=== PATIENT | male | born 1990 | race Caucasian/White ===

== ENCOUNTER 2024-03-01 04:07 | Inpatient (IN) | payer OTHER, SELFPAY ==
[2024-03-01 04:25] VITALS: BP 121/81; PULSE 77; RESP 16; TEMP 36.3; O2SAT 96
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
[2024-03-01 07:19] VITALS: BMI 29.7
--- NOTE | 2024-03-01 08:33 | HO.PSYADMNOT ---
HPI Date of Service: 03/01/24 Chief Complaint: unspecified bipolar D/o, unspecified opioid abuse Sources of Information: patient interviewed, chart reviewed and crisis/core team assessment reviewed HPI Subjective Notes: Singh Warning and Conditional Voluntary Narrative: Patient is a 33-year-old male with history of depression, cocaine/fentanyl use disorder, who presents for worsening depression SI with plan to walk in traffic, in the face of homelessness and chronic substance abuse. Patient reports that he was in a psychiatric hospital about a month ago where his mood significantly improved. After discharge, he remained sober for few days but soon relapsed. He has been homeless, sleeping on the street, and boiled in cocaine and fentanyl abuse. Patient reports that this cycle just made his depression worse to the point where he felt hopeless, alone and started having suicidal thoughts to walk out into traffic. These thoughts were fleeting and instead he presented to the ED for help. Denies manic episodes (with some hesitancy); denies AVH/delusional thinking; denies HI toward anyone including step father (angry towards but no thoughts of harm) Nursing staff,, Gila Newberry informed publications writer that patient was last dosed on methadone 185mg on 02/[address] [facility] Past Psychiatric History: Past psychiatric hospitalizations Most recent hospitalization, [facility] 01/2024 Medical Evaluation Reviewed: Hospitalist Sabina Pending [facility] Medical History MDD (major depressive disorder), recurrent severe, without psychosis Opioid use disorder Cocaine use disorder Homeless Family History: maternal side bipolar disorder, depression mother: addiction Social History: raised by his Paternal grandparents; siblings raised by maternal grandparents HS to 10th grade, no GED Mother currently homeless Uncle Larry is supportive Substance History: long hx of cocaine/opioid abuse Trauma History: denies Diagnostics Vital Signs (24Hr): Vital Signs - 24 hr 03/01/24 04:25 Temperature 97.3 F Pulse Rate 77 Respiratory Rate 16 Blood Pressure 121/81 Pulse Oximetry 96 Oxygen Delivery Method Room Air BMI result Body Mass Index 29.7 Labs 03/01/24 08:15 Meds/Allergies Meds Home Medications ?Medication ?Instructions ?Recorded ?Confirmed ?Type aripiprazole 10 mg PO DAILY 03/01/24 03/01/24 History bupropion HCl 100 mg PO BID 03/01/24 03/01/24 History clonidine 0.2 mg PO BID PRN Anxiety 03/01/24 03/01/24 History methadone 10 mg/mL oral 185 mg PO DAILY 03/01/24 03/01/24 History concentrate (Methadone Intensol) Allergies Allergies Allergy/AdvReac Type Severity Reaction Status Date / Time Unable to Assess Allergy Verified 03/01/24 06:40 Mental Status Exam Mental Status Exam Narrative: Pt is alert and oriented; behavior is cooperative, friendly and calm; patient is not in distress; dressed in hospital attire, disheveled; mood is described as depressed and affect congruent, downcast; eye contact a little avoidant; Speech is mildly latent, slowed; normal volume and prosody and not pressured; psychomotor retardation present; thought process is organized and goal directed; Thought content is on psychosocial stressors, tx; otherwise pertinent to relevant topics and without any delusional content, paranoid ideations or grandiosity; denies any SI/HI including toward step father. Denies AVH. There is no evidence of perceptual disturbance. Patients insight and judgment impaired. Assessment & Plan Assessment & Plan (1) MDD (major depressive disorder), recurrent severe, without psychosis: Status: Acute Code(s): F33.2 - Major depressive disorder, recurrent severe without psychotic features (2) Cocaine use disorder: Status: Acute Code(s): F14.10 - Cocaine abuse, uncomplicated (3) Opioid use disorder: Status: Acute Code(s): F11.90 - Opioid use, unspecified, uncomplicated (4) Homeless: Status: Acute Code(s): Z59.00 - Homelessness unspecified Plan Patient is a 33-year-old male with history of depression, cocaine/fentanyl use disorder, who presents for worsening depression SI with plan to walk in traffic, in the face of homelessness and chronic substance abuse. Patient reports that he was in a psychiatric hospital about a month ago where his mood significantly improved. After discharge, he remained sober for few days but soon relapsed. He has been homeless, sleeping on the street, and boiled in cocaine and fentanyl abuse. Patient reports that this cycle just made his depression worse to the point where he felt hopeless, alone and started having suicidal thoughts to walk out into traffic. These thoughts were fleeting and instead he presented to the ED for help. formulation/clincal reasoning: hx of depression well treated with Bupropion XL 450mg; depression mostly worsens when in active substance abuse. Denies hx of manic type symptoms (with some hesitancy). Will continue on Bupropion, clonidine, melatonin which he takes regularly. Pt asking for program. Patient educated on: diagnosis, medication risk/benefits, substance abuse and therapeutic strategies Informed Consent: understands Reason for continued inpatient stay Substantial Risk for: rapid decompensation Statement Statement: I have reviewed the history and physical and performed a pertinent examination on my patient. No changes have occurred unless specified. If the History and Physical was not performed prior to admission, the Hospitalist's service will be consulted for completing the admission physical. Time Spent With Patient Time: Total time managing care of this patient today ____ minutes.
--- NOTE | 2024-03-01 08:54 | HE.PHANOTE ---
Re MEthadone Received confirmation from RN that patient received 185mg from [facility], last given on 02/24/24. However, patient was at [facility]'s ER yesterday 02/29/24 where he received a 185mg dose.
[2024-03-01 09:20] LABS: Alanine Aminotransferase 33 U/L (0-40); Albumin Level 4.1 g/dL (3.5-5.0); Alkaline Phosphatase 62 U/L (39-117); Anion Gap 11 (12-20); Aspartate Amino Transferase 30 U/L (5-37); Bilirubin Total 0.2 mg/dL (0.0-1.0); Blood Urea Nitrogen 13 mg/dL (9-16); Calcium 10.2 mg/dL (8.4-10.2); Carbon Dioxide 34 mmol/L (22-29); Chloride 102 mmol/L (96-108); Creatinine Clr Calc Pharmacy 133.8; Estimated Glomerular Filt Rate > 60; Glucose Random 94 mg/dL (60-115); Potassium 4.7 mmol/L (3.3-5.1); Sodium 142 mmol/L (135-145); Total Protein 7.5 g/dL (6.5-8.0)
[2024-03-01 10:23] VITALS: BP 113/66; PULSE 62; TEMP 36.4; O2SAT 96
[2024-03-01] MEDS: methADONE HCl 20 MG/2 ML ORAL.CONC 185 MG PO (10:59)
[2024-03-01] MEDS: Nicotine Polacrilex 2 MG GUM 4 MG BUCCAL ×3 (11:02→19:45)
[2024-03-01] MEDS: buPROPion HCl XL 300 MG TAB.ER.24H PO (14:27)
[2024-03-01 15:25] VITALS: BP 121/80
[2024-03-01] MEDS: cloNIDine HCL 0.2 MG TABLET PO ×2 (15:25→19:45)
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
[2024-03-01] MEDS: Melatonin 3 MG TABLET 9 MG PO (19:44)
[2024-03-01 20:00] VITALS: BP 109/55; PULSE 60; RESP 16; TEMP 36.2; O2SAT 94
[2024-03-02] MEDS: methADONE HCl 20 MG/2 ML ORAL.CONC 185 MG PO (07:49)
[2024-03-02 08:31] LABS: MANUAL DIFF FLAG NO
[2024-03-02 08:36] LABS: Basophils Percent Auto 0.6 % (0-2); Eosinophils Absolute Auto 0.2 X10*3/uL (0.0-0.4); Eosinophils Percent Auto 2.8 % (0-4); Hematocrit 40.1 % (42.0-52.0); Hemoglobin 13.7 g/dl (14.0-18.0); Imm Gran Abs Auto 0.02 X10*3/uL (0.00-0.03); Imm Gran Pct Auto 0.4 % (0.0-0.4); Lymphocytes Absolute Auto 2.2 X10*3/uL (1.2-4.9); Lymphocytes Percent Auto 39.5 % (20-40); Mean Corpuscular HGB Conc 34.2 g/dl (31.0-36.0); Mean Corpuscular Volume 87.7 fL (80.0-98.0); Mean Platelet Volume 12.1 fL (9.4-12.4); Monocytes Absolute Auto 0.4 X10*3/uL (0.1-1.2); Neutrophils Absolute Auto 2.7 x10*3/uL (2.0-8.3); Neutrophils Percent Auto 49.7 % (45-73); Platelet Count 190 X10*3/uL (160-400); Red Blood Count 4.57 X10*6/uL (4.60-5.80); Red Cell Distribution Width 13.4 % (11.0-16.0); White Blood Count 5.4 X10*3/uL (4.8-10.8)
[2024-03-02] MEDS: buPROPion HCl XL 300 MG TAB.ER.24H PO (08:40)
[2024-03-02 08:45] LABS: Estimated Average Glucose 108 mg/dL; Hemoglobin A1C 122.0366 umol/L; Hemoglobin A1c % 5.4 % (<6.0); Total Hemoglobin (HGBA1C) 3474.2823 umol/L
[2024-03-02] MEDS: Nicotine Polacrilex 2 MG GUM 4 MG BUCCAL ×3 (08:45→20:04)
[2024-03-02 08:58] LABS: Cholesterol 161 mg/dL (<200); HDL Cholesterol 47 mg/dL (>40); LDL Cholesterol Calculated 101 mg/dL (<100); Triglycerides 68 mg/dL (<150)
[2024-03-02 09:27] LABS: Folate 11.8 ng/mL (> or = 4.0); Vitamin B12 387 pg/mL (200-900)
[2024-03-02 09:42] VITALS: BP 128/82; PULSE 78; RESP 18; TEMP 36.6; O2SAT 98
[2024-03-02 09:42] LABS: Free T4 (Free Thyroxine) 1.14 ng/dL (0.71-1.85); Thyroid Stimulating Hormone 1.34 uIU/mL (0.32-4.0)
[2024-03-02] MEDS: cloNIDine HCL 0.2 MG TABLET PO ×3 (09:42→20:04)
[2024-03-02] MEDS: buPROPion HCl XL 150 MG TAB.ER.24H PO (12:50)
[2024-03-02 16:25] VITALS: BP 114/70
[2024-03-02 16:42] VITALS: BMI 26.6
[2024-03-02] MEDS: Melatonin 3 MG TABLET 9 MG PO (19:58)
[2024-03-02 20:00] VITALS: BP 113/53; PULSE 101; RESP 14; TEMP 37.2; O2SAT 96
--- NOTE | 2024-03-02 23:04 | P.PNPSI_ITS ---
Subjective Subjective Date of Service: 03/02/24 Reason For Visit: unspecified bipolar D/o, unspecified opioid abuse Interim History: met with pt; discussed with team pt reports that he was never really suicidal and never had any intention or plans for self harm. He slept well and reports he feeling better; says depression is still there a little bit... but increases when he thinks about homelessness which triggers a strong reaction. Discussed aftercare and patients says he's not ready yet, that his mind still needs to heal, but he very much wants to attend a CSS/substance abuse program. Pt however refuses to go [facility], saying he's been there and left early since it's too stringent and confining. White Sugar Syrup Operator shared that he can pursue other options but if refuses [facility] and other options do not materialize, patient should understand that plan B will be a snf; pt found this idea upsetting but still refused to attend [facility]. Discussed emotional reactivity and whether to add another medication; did not discuss options yet, but patient said he would consider. Mental Status Exam Mental Status Exam Narrative: Pt is alert and oriented; behavior is mostly isolating; cooperative, and calm; patient is not in distress; dressed in hospital attire, disheveled; mood is described as alright...depression still there a little bit and affect congruent, downcast; eye contact still a little avoidant; Speech is normal rate, volume, prosody; still psychomotor retardation present; thought process is organized and goal directed; Thought content is on psychosocial stressors, homelessness, tx; otherwise pertinent to relevant topics and without any delusional content, paranoid ideations or grandiosity; denies any SI/HI including toward step father. Denies AVH. There is no evidence of perceptual disturbance. Patients insight and judgment impaired but improving. Diagnostics Vital Signs (24Hr): Vital Signs - 24 hr 03/02/24 09:42 03/02/24 16:25 03/02/24 20:00 Temperature 97.8 F 98.9 F Pulse Rate 78 101 H Respiratory Rate 18 14 Blood Pressure 128/82 114/70 113/53 L Pulse Oximetry 98 96 Oxygen Delivery Method Room Air Room Air BMI result Body Mass Index 26.6 Labs 03/02/24 08:05 03/01/24 08:15 Labs: Laboratory Results - last 48 hr 03/01/24 03/02/24 08:15 08:05 WBC 5.4 RBC 4.57 L Hgb 13.7 L Hct 40.1 L MCV 87.7 MCH 30.0 MCHC 34.2 RDW 13.4 Plt Count 190 MPV 12.1 Immature Gran % (Auto) 0.4 Neut % (Auto) 49.7 Lymph % (Auto) 39.5 [place] % (Auto) 7.0 Eos % (Auto) 2.8 Baso % (Auto) 0.6 Lymph # (Auto) 2.2 [place] # (Auto) 0.4 Eos # (Auto) 0.2 Baso # (Auto) 0.0 Abs Immat Gran (auto) 0.02 Absolute Neuts (auto) 2.7 Absolute Nucleated RBC 0.000 Nucleated RBC % (auto) 0.0 Sodium 142 Potassium 4.7 Chloride 102 Carbon Dioxide 34 H Anion Gap 11 L BUN 13 Creatinine 0.95 Estim Creat Clear Calc 133.8 Estimated GFR > 60 Random Glucose 94 Estimat Average Glucose 108 Hemoglobin A1c % 5.4 Calcium 10.2 Total Bilirubin 0.2 AST 30 ALT 33 Alkaline Phosphatase 62 Total Protein 7.5 Albumin 4.1 Triglycerides 68 Cholesterol 161 LDL Cholesterol, Calc 101 H HDL Cholesterol 47 Vitamin B12 387 Folate 11.8 TSH 1.34 Free T4 1.14 Medications Medications Current Medications Acetaminophen (Acetaminophen 325 Mg Tablet) 650 mg PO Q6H PRN PRN Reason: Headache/Pain Mild Scale (1-3) Al Hydroxide/Mg Hydroxide (Magnesium Hydrox/Alum Hydrox 30 Ml Oral.Susp) 30 ml PO Q6H PRN PRN Reason: Heartburn/Nausea Bupropion HCl (Bupropion Hcl Xl 300 Mg Tab.Er.24h) 300 mg PO DAILY [facility] Last Admin: 03/02/24 08:40 Dose: 300 mg Bupropion HCl (Bupropion Hcl Xl 150 Mg Tab.Er.24h) 150 mg PO DAILY@1300 [facility] Last Admin: 03/02/24 12:50 Dose: 150 mg Clonidine HCl (Clonidine Hcl 0.2 Mg Tablet) 0.2 mg PO TID PRN; Protocol PRN Reason: anxiety Last Admin: 03/02/24 20:04 Dose: 0.2 mg Hydroxyzine HCl (Hydroxyzine Hcl 25 Mg Tablet) 25 mg PO Q6H PRN PRN Reason: Anxiety Magnesium Hydroxide (Milk Of Magnesia 30 Ml Oral.Susp) 30 ml PO DAILY PRN PRN Reason: Constipation Melatonin (Melatonin 3 Mg Tablet) 9 mg PO BEDTIME [facility] Last Admin: 03/02/24 19:58 Dose: 9 mg Methadone HCl (Methadone Hcl 20 Mg/2 Ml Oral.Conc) 185 mg PO DAILY@0800 [facility] Last Admin: 03/02/24 07:49 Dose: 185 mg Nicotine Polacrilex (Nicotine Polacrilex 2 Mg Gum) 4 mg BUCCAL Q2H PRN PRN Reason: Nicotine Cravings Last Admin: 03/02/24 20:04 Dose: 4 mg Trazodone HCl (Trazodone Hcl 50 Mg Tablet) 50 mg PO BEDTIME MRX1 PRN PRN Reason: Insomnia Allergies Allergies Allergy/AdvReac Type Severity Reaction Status Date / Time Unable to Assess Allergy Verified 03/01/24 06:40 Assessment & Plan Assessment & Plan (1) MDD (major depressive disorder), recurrent severe, without psychosis: Status: Acute Code(s): F33.2 - Major depressive disorder, recurrent severe without psychotic features (2) Cocaine use disorder: Status: Acute Code(s): F14.10 - Cocaine abuse, uncomplicated (3) Opioid use disorder: Status: Acute Code(s): F11.90 - Opioid use, unspecified, uncomplicated (4) Homeless: Status: Acute Code(s): Z59.00 - Homelessness unspecified Plan Patient is a 33-year-old male with history of depression, cocaine/fentanyl use disorder, who presents for worsening depression SI with plan to walk in traffic, in the face of homelessness and chronic substance abuse. Patient reports that he was in a psychiatric hospital about a month ago where his mood significantly improved. After discharge, he remained sober for few days but soon relapsed. He has been homeless, sleeping on the street, and boiled in cocaine and fentanyl abuse. Patient reports that this cycle just made his depression worse to the point where he felt hopeless, alone and started having suicidal thoughts to walk out into traffic. These thoughts were fleeting and instead he presented to the ED for help. formulation/clincal reasoning: hx of depression well treated with Bupropion XL 450mg; depression mostly worsens when in active substance abuse. Denies hx of manic type symptoms (with some hesitancy). Will continue on Bupropion, clonidine, melatonin which he takes regularly. Pt asking for program. 03/02 pt reports that he was never really suicidal and never had any intention or plans for self harm. He slept well and reports he feeling better; says depression is still there a little bit... but increases when he thinks about homelessness which triggers a strong reaction. Discussed aftercare and patients says he's not ready yet, that his mind still needs to heal, but he very much wants to attend a [facility]/substance abuse program. Pt however refuses to go to [facility], saying he's been there and left early since it's too stringent and confining. White [employer] Sy[employer] Operator shared that he can pursue other options but if refuses [facility] and other options do not materialize, patient should understand that plan B will be a snf; pt found this idea upsetting but still refused to attend [facility]. Discussed emotional reactivity and whether to add another medication; did not discuss options yet, but patient said he would consider. Patient educated on: diagnosis, medication risk/benefits, substance abuse and therapeutic strategies Informed Consent: understands Reason for continued inpatient stay Substantial Risk for: rapid decompensation Time Spent With Patient Time: Total time managing care of this patient today ____ minutes.
[2024-03-03] MEDS: methADONE HCl 20 MG/2 ML ORAL.CONC 185 MG PO (07:46)
[2024-03-03 09:03] VITALS: BP 101/57; PULSE 81; RESP 16; TEMP 36.2; O2SAT 97
[2024-03-03] MEDS: buPROPion HCl XL 300 MG TAB.ER.24H PO (09:10)
[2024-03-03] MEDS: Nicotine Polacrilex 2 MG GUM 4 MG BUCCAL ×3 (09:11→20:10)
[2024-03-03 10:01] VITALS: BP 118/70
[2024-03-03 10:02] VITALS: BP 118/70
[2024-03-03] MEDS: cloNIDine HCL 0.2 MG TABLET PO ×3 (10:02→20:10)
[2024-03-03] MEDS: buPROPion HCl XL 150 MG TAB.ER.24H PO (13:05)
--- NOTE | 2024-03-03 14:36 | P.PNPSI_ITS ---
Subjective Subjective Date of Service: 03/03/24 Reason For Visit: unspecified bipolar D/o, unspecified opioid abuse Subjective Notes: Conditional Voluntary Interim History: Patient reports feeling anxious today; pt stated, I'm waiting to go into a substance abuse program. I'm anxious since I don't know where I'm going. I'll go anywhere that has an open bed ; social work notified. pt denies SI/HI/VH/AH. Medication Compliance: Yes Side effects from medications: No Review of Systems Constitutional: Reports as per HPI Eyes: Reports as per HPI Reports as per HPI Cardiovascular: Reports as per HPI Respiratory: Reports as per HPI Gastrointestinal: Reports as per HPI Genitourinary: Reports as per HPI Musculoskeletal: Reports as per HPI Skin/Breast: Reports as per HPI Reports as per HPI Psychiatric: Reports as per HPI Endocrine: Reports as per HPI Hematologic/Lymphatic: Reports as per HPI Allergic/Immunologic: Reports as per HPI Mental Status Exam Mental Status Exam Narrative: Pt is alert and oriented; behavior is cooperative; dressed in casual attire; mood is described as anxious ; eye contact appropriate; Speech is normal rate, volume and not pressured; thought process is organized and goal directed; Thought content is on tx; denies SI/HI/VH/AH Diagnostics Vital Signs (24Hr): Vital Signs - 24 hr 03/02/24 16:25 03/02/24 20:00 03/03/24 09:03 Temperature 98.9 F 97.2 F Pulse Rate 101 H 81 Respiratory Rate 14 16 Blood Pressure 114/70 113/53 L 101/57 L Pulse Oximetry 96 97 Oxygen Delivery Method Room Air Room Air 03/03/24 10:01 03/03/24 10:02 Temperature Pulse Rate Respiratory Rate Blood Pressure 118/70 118/70 Pulse Oximetry Oxygen Delivery Method BMI result Body Mass Index 26.6 Labs 03/02/24 08:05 03/01/24 08:15 Labs: Laboratory Results - last 48 hr 03/02/24 08:05 WBC 5.4 RBC 4.57 L Hgb 13.7 L Hct 40.1 L MCV 87.7 MCH 30.0 MCHC 34.2 RDW 13.4 Plt Count 190 MPV 12.1 Immature Gran % (Auto) 0.4 Neut % (Auto) 49.7 Lymph % (Auto) 39.5 [place] % (Auto) 7.0 Eos % (Auto) 2.8 Baso % (Auto) 0.6 Lymph # (Auto) 2.2 [place] # (Auto) 0.4 Eos # (Auto) 0.2 Baso # (Auto) 0.0 Abs Immat Gran (auto) 0.02 Absolute Neuts (auto) 2.7 Absolute Nucleated RBC 0.000 Nucleated RBC % (auto) 0.0 Estimat Average Glucose 108 Hemoglobin A1c % 5.4 Triglycerides 68 Cholesterol 161 LDL Cholesterol, Calc 101 H HDL Cholesterol 47 Vitamin B12 387 Folate 11.8 TSH 1.34 Free T4 1.14 Medications Medications Current Medications Acetaminophen (Acetaminophen 325 Mg Tablet) 650 mg PO Q6H PRN PRN Reason: Headache/Pain Mild Scale (1-3) Al Hydroxide/Mg Hydroxide (Magnesium Hydrox/Alum Hydrox 30 Ml Oral.Susp) 30 ml PO Q6H PRN PRN Reason: Heartburn/Nausea Bupropion HCl (Bupropion Hcl Xl 300 Mg Tab.Er.24h) 300 mg PO DAILY [facility] Last Admin: 03/03/24 09:10 Dose: 300 mg Bupropion HCl (Bupropion Hcl Xl 150 Mg Tab.Er.24h) 150 mg PO DAILY@1300 [facility] Last Admin: 03/03/24 13:05 Dose: 150 mg Clonidine HCl (Clonidine Hcl 0.2 Mg Tablet) 0.2 mg PO TID PRN; Protocol PRN Reason: anxiety Last Admin: 03/03/24 10:02 Dose: 0.2 mg Hydroxyzine HCl (Hydroxyzine Hcl 25 Mg Tablet) 25 mg PO Q6H PRN PRN Reason: Anxiety Magnesium Hydroxide (Milk Of Magnesia 30 Ml Oral.Susp) 30 ml PO DAILY PRN PRN Reason: Constipation Melatonin (Melatonin 3 Mg Tablet) 9 mg PO BEDTIME [facility] Last Admin: 03/02/24 19:58 Dose: 9 mg Methadone HCl (Methadone Hcl 20 Mg/2 Ml Oral.Conc) 185 mg PO DAILY@0800 [facility] Last Admin: 03/03/24 07:46 Dose: 185 mg Nicotine Polacrilex (Nicotine Polacrilex 2 Mg Gum) 4 mg BUCCAL Q2H PRN PRN Reason: Nicotine Cravings Last Admin: 03/03/24 13:05 Dose: 4 mg Trazodone HCl (Trazodone Hcl 50 Mg Tablet) 50 mg PO BEDTIME MRX1 PRN PRN Reason: Insomnia Allergies Allergies Allergy/AdvReac Type Severity Reaction Status Date / Time Unable to Assess Allergy Verified 03/01/24 06:40 Assessment & Plan Assessment & Plan (1) MDD (major depressive disorder), recurrent severe, without psychosis: Status: Acute Code(s): F33.2 - Major depressive disorder, recurrent severe without psychotic features (2) Cocaine use disorder: Status: Acute Code(s): F14.10 - Cocaine abuse, uncomplicated (3) Opioid use disorder: Status: Acute Code(s): F11.90 - Opioid use, unspecified, uncomplicated (4) Homeless: Status: Acute Code(s): Z59.00 - Homelessness unspecified Plan Patient is a 33-year-old male with history of depression, cocaine/fentanyl use disorder, who presents for worsening depression SI with plan to walk in traffic, in the face of homelessness and chronic substance abuse. Patient reports that he was in a psychiatric hospital about a month ago where his mood significantly improved. After discharge, he remained sober for few days but soon relapsed. He has been homeless, sleeping on the street, and boiled in cocaine and fentanyl abuse. Patient reports that this cycle just made his depression worse to the point where he felt hopeless, alone and started having suicidal thoughts to walk out into traffic. These thoughts were fleeting and instead he presented to the ED for help. formulation/clincal reasoning: hx of depression well treated with Bupropion XL 450mg; depression mostly worsens when in active substance abuse. Denies hx of manic type symptoms (with some hesitancy). Will continue on Bupropion, clonidine, melatonin which he takes regularly. Pt asking for program. 03/02 pt reports that he was never really suicidal and never had any intention or plans for self harm. He slept well and reports he feeling better; says depression is still there a little bit... but increases when he thinks about homelessness which triggers a strong reaction. Discussed aftercare and patients says he's not ready yet, that his mind still needs to heal, but he very much wants to attend a CSS/substance abuse program. Pt however refuses to go to [facility], saying he's been there and left early since it's too stringent and confining. Freight Handler shared that he can pursue other options but if refuses [facility] and other options do not materialize, patient should understand that plan B will be a nursing home; pt found this idea upsetting but still refused to attend [facility]. Discussed emotional reactivity and whether to add another medication; did not discuss options yet, but patient said he would consider. 03/03: continue current tx plan. Patient educated on: medication risk/benefits Reason for continued inpatient stay Substantial Risk for: med/psych decompensation Time Spent With Patient Time: Total time managing care of this patient today _20___ minutes.
[2024-03-03 16:37] VITALS: BP 111/69
[2024-03-03 20:00] VITALS: BP 104/61; PULSE 87; RESP 16; TEMP 36.9; O2SAT 97
[2024-03-03] MEDS: Melatonin 3 MG TABLET 9 MG PO (20:10)
[2024-03-04] MEDS: methADONE HCl 20 MG/2 ML ORAL.CONC 185 MG PO (07:26)
--- NOTE | 2024-03-04 08:13 | HO.PSYCHPN ---
Subjective Subjective Date of Service: 03/04/24 Reason For Visit: unspecified bipolar D/o, unspecified opioid abuse Subjective Notes: Conditional Voluntary Interim History: The nursing staff reported the patient had been compliant with treatment, he asked for p.r.n. medications. He took his methadone and he denies new symptoms. On interview the patient reported that he is feeling okay disengaged during the interview. No new symptoms Mental Status Exam Mental Status Exam Patient Appearance: Appropriate Patient Orientation: Person and Situation Level of Consciousness: Awake and Appropriate Patient Behavior: Guarded and Passive Mood Description: Withdrawn Affect Description: Constricted Patient Cognition Impaired: No Ability to Follow Directions: Good Speech Pattern: Clear Hallucinations: None Delusions: Ideas of Reference Thought Process: Distracted and Slowed Thinking Thought Content: positive for [place] and positive for Circumstantial Judgement: Fair Diagnostics Vital Signs (24Hr): Vital Signs - 24 hr 03/03/24 09:03 03/03/24 10:01 03/03/24 10:02 Temperature 97.2 F Pulse Rate 81 Respiratory Rate 16 Blood Pressure 101/57 L 118/70 118/70 Pulse Oximetry 97 Oxygen Delivery Method Room Air 03/03/24 16:37 03/03/24 20:00 Temperature 98.4 F Pulse Rate 87 Respiratory Rate 16 Blood Pressure 111/69 104/61 Pulse Oximetry 97 Oxygen Delivery Method Room Air BMI result Body Mass Index 26.6 Labs 03/02/24 08:05 03/01/24 08:15 Labs: Laboratory Results - last 48 hr 03/02/24 08:05 WBC 5.4 RBC 4.57 L Hgb 13.7 L Hct 40.1 L MCV 87.7 MCH 30.0 MCHC 34.2 RDW 13.4 Plt Count 190 MPV 12.1 Immature Gran % (Auto) 0.4 Neut % (Auto) 49.7 Lymph % (Auto) 39.5 [place] % (Auto) 7.0 Eos % (Auto) 2.8 Baso % (Auto) 0.6 Lymph # (Auto) 2.2 [place] # (Auto) 0.4 Eos # (Auto) 0.2 Baso # (Auto) 0.0 Abs Immat Gran (auto) 0.02 Absolute Neuts (auto) 2.7 Absolute Nucleated RBC 0.000 Nucleated RBC % (auto) 0.0 Estimat Average Glucose 108 Hemoglobin A1c % 5.4 Triglycerides 68 Cholesterol 161 LDL Cholesterol, Calc 101 H HDL Cholesterol 47 Vitamin B12 387 Folate 11.8 TSH 1.34 Free T4 1.14 Medications Medications Current Medications Acetaminophen (Acetaminophen 325 Mg Tablet) 650 mg PO Q6H PRN PRN Reason: Headache/Pain Mild Scale (1-3) Al Hydroxide/Mg Hydroxide (Magnesium Hydrox/Alum Hydrox 30 Ml Oral.Susp) 30 ml PO Q6H PRN PRN Reason: Heartburn/Nausea Bupropion HCl (Bupropion Hcl Xl 300 Mg Tab.Er.24h) 300 mg PO DAILY [facility] Last Admin: 03/03/24 09:10 Dose: 300 mg Bupropion HCl (Bupropion Hcl Xl 150 Mg Tab.Er.24h) 150 mg PO DAILY@1300 [facility] Last Admin: 03/03/24 13:05 Dose: 150 mg Clonidine HCl (Clonidine Hcl 0.2 Mg Tablet) 0.2 mg PO TID PRN; Protocol PRN Reason: anxiety Last Admin: 03/03/24 20:10 Dose: 0.2 mg Hydroxyzine HCl (Hydroxyzine Hcl 25 Mg Tablet) 25 mg PO Q6H PRN PRN Reason: Anxiety Magnesium Hydroxide (Milk Of Magnesia 30 Ml Oral.Susp) 30 ml PO DAILY PRN PRN Reason: Constipation Melatonin (Melatonin 3 Mg Tablet) 9 mg PO BEDTIME [facility] Last Admin: 03/03/24 20:10 Dose: 9 mg Methadone HCl (Methadone Hcl 20 Mg/2 Ml Oral.Conc) 185 mg PO DAILY@0800 [facility] Last Admin: 03/04/24 07:26 Dose: 185 mg Nicotine Polacrilex (Nicotine Polacrilex 2 Mg Gum) 4 mg BUCCAL Q2H PRN PRN Reason: Nicotine Cravings Last Admin: 03/03/24 20:10 Dose: 4 mg Trazodone HCl (Trazodone Hcl 50 Mg Tablet) 50 mg PO BEDTIME MRX1 PRN PRN Reason: Insomnia Allergies Allergies Allergy/AdvReac Type Severity Reaction Status Date / Time Unable to Assess Allergy Verified 03/01/24 06:40 Assessment & Plan Assessment & Plan (1) MDD (major depressive disorder), recurrent severe, without psychosis: Status: Acute Code(s): F33.2 - Major depressive disorder, recurrent severe without psychotic features (2) Cocaine use disorder: Status: Acute Code(s): F14.10 - Cocaine abuse, uncomplicated (3) Opioid use disorder: Status: Acute Code(s): F11.90 - Opioid use, unspecified, uncomplicated (4) Homeless: Status: Acute Code(s): Z59.00 - Homelessness unspecified Plan Patient is a 33-year-old male with history of depression, cocaine/fentanyl use disorder, who presents for worsening depression SI with plan to walk in traffic, in the face of homelessness and chronic substance abuse. Patient reports that he was in a psychiatric hospital about a month ago where his mood significantly improved. After discharge, he remained sober for few days but soon relapsed. He has been homeless, sleeping on the street, and boiled in cocaine and fentanyl abuse. Patient reports that this cycle just made his depression worse to the point where he felt hopeless, alone and started having suicidal thoughts to walk out into traffic. These thoughts were fleeting and instead he presented to the ED for help. formulation/clincal reasoning: hx of depression well treated with Bupropion XL 450mg; depression mostly worsens when in active substance abuse. Denies hx of manic type symptoms (with some hesitancy). Will continue on Bupropion, clonidine, melatonin which he takes regularly. Pt asking for program. 03/02 pt reports that he was never really suicidal and never had any intention or plans for self harm. He slept well and reports he feeling better; says depression is still there a little bit... but increases when he thinks about homelessness which triggers a strong reaction. Discussed aftercare and patients says he's not ready yet, that his mind still needs to heal, but he very much wants to attend a [facility]/substance abuse program. Pt however refuses to go to [facility], saying he's been there and left early since it's too stringent and confining. Bible Worker shared that he can pursue other options but if refuses [facility] and other options do not materialize, patient should understand that plan B will be a [facility]; pt found this idea upsetting but still refused to attend [facility]. Discussed emotional reactivity and whether to add another medication; did not discuss options yet, but patient said he would consider. 03/03: continue current tx plan. 03/04 continue same treatment Reason for continued inpatient stay Substantial Risk for: inability to function, rapid decompensation and med/psych decompensation Time Spent With Patient Time: Total time managing care of this patient today __20__ minutes.
[2024-03-04] MEDS: Nicotine Polacrilex 2 MG GUM 4 MG BUCCAL ×4 (08:58→19:50)
[2024-03-04] MEDS: buPROPion HCl XL 300 MG TAB.ER.24H PO (08:58)
[2024-03-04 09:40] VITALS: BP 112/79; PULSE 120; RESP 18; TEMP 36.1; O2SAT 98
[2024-03-04 09:49] VITALS: BP 112/79
[2024-03-04] MEDS: cloNIDine HCL 0.2 MG TABLET PO ×3 (09:49→19:50)
[2024-03-04] MEDS: buPROPion HCl XL 150 MG TAB.ER.24H PO (12:40)
[2024-03-04 14:12] VITALS: BP 100/63
[2024-03-04] MEDS: hydrOXYzine HCL 25 MG TABLET PO (17:44)
[2024-03-04] MEDS: Melatonin 3 MG TABLET 9 MG PO (19:50)
[2024-03-04 20:00] VITALS: BP 104/54; PULSE 103; RESP 16; TEMP 36.3; O2SAT 97
[2024-03-05] MEDS: methADONE HCl 20 MG/2 ML ORAL.CONC 185 MG PO (07:42)
[2024-03-05] MEDS: buPROPion HCl XL 300 MG TAB.ER.24H PO (07:45)
[2024-03-05 08:00] VITALS: BP 137/59; PULSE 64; RESP 16; TEMP 36.6; O2SAT 96
[2024-03-05] MEDS: cloNIDine HCL 0.2 MG TABLET PO ×3 (09:10→19:44)
[2024-03-05] MEDS: hydrOXYzine HCL 25 MG TABLET PO ×2 (09:10→17:29)
--- NOTE | 2024-03-05 10:56 | HO.PSYCHPN ---
Subjective Subjective Date of Service: 03/05/24 Reason For Visit: unspecified bipolar D/o, unspecified opioid abuse Subjective Notes: Conditional Voluntary Interim History: The nursing staff reported that been more visible in the unit, refused vital signs, he had been playful such as taking other's patient shoes. He had been disheveled and malodorous less irritable. On interview the patient refused to engage disheveled in the unit, sleeping profoundly. On interview refused to provide more details. Mental Status Exam Mental Status Exam Patient Appearance: Disheveled and Unkempt Patient Orientation: Person and Situation Level of Consciousness: Awake and Appropriate Patient Behavior: Guarded and Passive Mood Description: Withdrawn Affect Description: Constricted Patient Cognition Impaired: Yes Ability to Follow Directions: Good Speech Pattern: Clear Hallucinations: None Delusions: Ideas of Reference Thought Process: Distracted and Slowed Thinking Thought Content: positive for [place] and positive for [place] of Content Judgement: Poor Diagnostics Vital Signs (24Hr): Vital Signs - 24 hr 03/04/24 14:12 03/04/24 20:00 03/05/24 08:00 Temperature 97.3 F 98 F Pulse Rate 103 H 64 Respiratory Rate 16 16 Blood Pressure 100/63 104/54 L 137/59 L Pulse Oximetry 97 96 Oxygen Delivery Method Room Air Room Air BMI result Body Mass Index 26.6 Labs 03/02/24 08:05 03/01/24 08:15 Medications Medications Current Medications Acetaminophen (Acetaminophen 325 Mg Tablet) 650 mg PO Q6H PRN PRN Reason: Headache/Pain Mild Scale (1-3) Al Hydroxide/Mg Hydroxide (Magnesium Hydrox/Alum Hydrox 30 Ml Oral.Susp) 30 ml PO Q6H PRN PRN Reason: Heartburn/Nausea Bupropion HCl (Bupropion Hcl Xl 300 Mg Tab.Er.24h) 300 mg PO DAILY [facility] Last Admin: 03/05/24 07:45 Dose: 300 mg Bupropion HCl (Bupropion Hcl Xl 150 Mg Tab.Er.24h) 150 mg PO DAILY@1300 [facility] Last Admin: 03/04/24 12:40 Dose: 150 mg Clonidine HCl (Clonidine Hcl 0.2 Mg Tablet) 0.2 mg PO TID PRN; Protocol PRN Reason: anxiety Last Admin: 03/05/24 09:10 Dose: 0.2 mg Hydroxyzine HCl (Hydroxyzine Hcl 25 Mg Tablet) 25 mg PO Q6H PRN PRN Reason: Anxiety Last Admin: 03/05/24 09:10 Dose: 25 mg Magnesium Hydroxide (Milk Of Magnesia 30 Ml Oral.Susp) 30 ml PO DAILY PRN PRN Reason: Constipation Melatonin (Melatonin 3 Mg Tablet) 9 mg PO BEDTIME [facility] Last Admin: 03/04/24 19:50 Dose: 9 mg Methadone HCl (Methadone Hcl 20 Mg/2 Ml Oral.Conc) 185 mg PO DAILY@0800 [facility] Last Admin: 03/05/24 07:42 Dose: 185 mg Nicotine Polacrilex (Nicotine Polacrilex 2 Mg Gum) 4 mg BUCCAL Q2H PRN PRN Reason: Nicotine Cravings Last Admin: 03/04/24 19:50 Dose: 4 mg Trazodone HCl (Trazodone Hcl 50 Mg Tablet) 50 mg PO BEDTIME MRX1 PRN PRN Reason: Insomnia Allergies Allergies Allergy/AdvReac Type Severity Reaction Status Date / Time Unable to Assess Allergy Verified 03/01/24 06:40 Assessment & Plan Assessment & Plan (1) MDD (major depressive disorder), recurrent severe, without psychosis: Status: Acute Code(s): F33.2 - Major depressive disorder, recurrent severe without psychotic features (2) Cocaine use disorder: Status: Acute Code(s): F14.10 - Cocaine abuse, uncomplicated (3) Opioid use disorder: Status: Acute Code(s): F11.90 - Opioid use, unspecified, uncomplicated (4) Homeless: Status: Acute Code(s): Z59.00 - Homelessness unspecified Plan Patient is a 33-year-old male with history of depression, cocaine/fentanyl use disorder, who presents for worsening depression SI with plan to walk in traffic, in the face of homelessness and chronic substance abuse. Patient reports that he was in a psychiatric hospital about a month ago where his mood significantly improved. After discharge, he remained sober for few days but soon relapsed. He has been homeless, sleeping on the street, and boiled in cocaine and fentanyl abuse. Patient reports that this cycle just made his depression worse to the point where he felt hopeless, alone and started having suicidal thoughts to walk out into traffic. These thoughts were fleeting and instead he presented to the ED for help. formulation/clincal reasoning: hx of depression well treated with Bupropion XL 450mg; depression mostly worsens when in active substance abuse. Denies hx of manic type symptoms (with some hesitancy). Will continue on Bupropion, clonidine, melatonin which he takes regularly. Pt asking for program. 03/02 pt reports that he was never really suicidal and never had any intention or plans for self harm. He slept well and reports he feeling better; says depression is still there a little bit... but increases when he thinks about homelessness which triggers a strong reaction. Discussed aftercare and patients says he's not ready yet, that his mind still needs to heal, but he very much wants to attend a [facility]/substance abuse program. Pt however refuses to go to [facility], saying he's been there and left early since it's too stringent and confining. Fractionation Supervisor shared that he can pursue other options but if refuses [facility] and other options do not materialize, patient should understand that plan B will be a residential; pt found this idea upsetting but still refused to attend [facility]. Discussed emotional reactivity and whether to add another medication; did not discuss options yet, but patient said he would consider. 03/03: continue current tx plan. 03/04 continue same treatment 03/05 continue same treatment Reason for continued inpatient stay Substantial Risk for: inability to function, rapid decompensation and med/psych decompensation Time Spent With Patient Time: Total time managing care of this patient today __20__ minutes.
[2024-03-05] MEDS: buPROPion HCl XL 150 MG TAB.ER.24H PO (12:39)
[2024-03-05] MEDS: Nicotine Polacrilex 2 MG GUM 4 MG BUCCAL ×3 (12:39→19:43)
[2024-03-05 17:29] VITALS: BP 113/63
[2024-03-05 19:44] VITALS: BP 123/62
[2024-03-05] MEDS: Melatonin 3 MG TABLET 9 MG PO (19:44)
[2024-03-05 20:00] VITALS: BP 121/92; PULSE 69; RESP 16; TEMP 36.9; O2SAT 95
[2024-03-06] MEDS: methADONE HCl 20 MG/2 ML ORAL.CONC 185 MG PO (07:38)
[2024-03-06] MEDS: Nicotine Polacrilex 2 MG GUM 4 MG BUCCAL ×4 (07:42→19:53)
[2024-03-06] MEDS: buPROPion HCl XL 300 MG TAB.ER.24H PO (07:42)
[2024-03-06 08:00] VITALS: BP 123/70; PULSE 79; RESP 16; TEMP 36.4; O2SAT 99
[2024-03-06 09:14] VITALS: BP 115/63
[2024-03-06] MEDS: hydrOXYzine HCL 25 MG TABLET PO (09:14)
[2024-03-06] MEDS: cloNIDine HCL 0.2 MG TABLET PO ×2 (09:14→15:27)
--- NOTE | 2024-03-06 09:45 | HO.PSYCHPN ---
Subjective Subjective Date of Service: 03/06/24 Reason For Visit: unspecified bipolar D/o, unspecified opioid abuse Interim History: met with pt; discussed with team; reviewed chart Patient reports that his mood is better; feels medications are helpful. Reports much anxiety and asks for clonazepam; music writer reviewed [facility] and pt has not been prescribed clonazepam since August; discussed risks of this med. Orthopaedic Surgeon agreed to order just while on inpt unit given acuity, but not to be discharged with to which pt agreed and instead would try low dose seroquel. Diagnostics Vital Signs (24Hr): Vital Signs - 24 hr 03/05/24 17:29 03/05/24 19:44 03/05/24 20:00 Temperature 98.5 F Pulse Rate 69 Respiratory Rate 16 Blood Pressure 113/63 123/62 121/92 H Pulse Oximetry 95 Oxygen Delivery Method Room Air 03/06/24 09:14 Temperature Pulse Rate Respiratory Rate Blood Pressure 115/63 Pulse Oximetry Oxygen Delivery Method BMI result Body Mass Index 26.6 Labs 03/02/24 08:05 03/01/24 08:15 Medications Medications Current Medications Acetaminophen (Acetaminophen 325 Mg Tablet) 650 mg PO Q6H PRN PRN Reason: Headache/Pain Mild Scale (1-3) Al Hydroxide/Mg Hydroxide (Magnesium Hydrox/Alum Hydrox 30 Ml Oral.Susp) 30 ml PO Q6H PRN PRN Reason: Heartburn/Nausea Bupropion HCl (Bupropion Hcl Xl 300 Mg Tab.Er.24h) 300 mg PO DAILY [facility] Last Admin: 03/06/24 07:42 Dose: 300 mg Bupropion HCl (Bupropion Hcl Xl 150 Mg Tab.Er.24h) 150 mg PO DAILY@1300 [facility] Last Admin: 03/05/24 12:39 Dose: 150 mg Clonidine HCl (Clonidine Hcl 0.2 Mg Tablet) 0.2 mg PO TID PRN; Protocol PRN Reason: anxiety Last Admin: 03/06/24 09:14 Dose: 0.2 mg Hydroxyzine HCl (Hydroxyzine Hcl 25 Mg Tablet) 25 mg PO Q6H PRN PRN Reason: Anxiety Last Admin: 03/06/24 09:14 Dose: 25 mg Magnesium Hydroxide (Milk Of Magnesia 30 Ml Oral.Susp) 30 ml PO DAILY PRN PRN Reason: Constipation Melatonin (Melatonin 3 Mg Tablet) 9 mg PO BEDTIME [facility] Last Admin: 03/05/24 19:44 Dose: 9 mg Methadone HCl (Methadone Hcl 20 Mg/2 Ml Oral.Conc) 185 mg PO DAILY@0800 [facility] Last Admin: 03/06/24 07:38 Dose: 185 mg Nicotine Polacrilex (Nicotine Polacrilex 2 Mg Gum) 4 mg BUCCAL Q2H PRN PRN Reason: Nicotine Cravings Last Admin: 03/06/24 07:42 Dose: 4 mg Trazodone HCl (Trazodone Hcl 50 Mg Tablet) 50 mg PO BEDTIME MRX1 PRN PRN Reason: Insomnia Allergies Allergies Allergy/AdvReac Type Severity Reaction Status Date / Time Unable to Assess Allergy Verified 03/01/24 06:40 Assessment & Plan Assessment & Plan (1) MDD (major depressive disorder), recurrent severe, without psychosis: Status: Acute Code(s): F33.2 - Major depressive disorder, recurrent severe without psychotic features (2) Cocaine use disorder: Status: Acute Code(s): F14.10 - Cocaine abuse, uncomplicated (3) Opioid use disorder: Status: Acute Code(s): F11.90 - Opioid use, unspecified, uncomplicated (4) Homeless: Status: Acute Code(s): Z59.00 - Homelessness unspecified Plan Patient is a 33-year-old male with history of depression, cocaine/fentanyl use disorder, who presents for worsening depression SI with plan to walk in traffic, in the face of homelessness and chronic substance abuse. Patient reports that he was in a psychiatric hospital about a month ago where his mood significantly improved. After discharge, he remained sober for few days but soon relapsed. He has been homeless, sleeping on the street, and boiled in cocaine and fentanyl abuse. Patient reports that this cycle just made his depression worse to the point where he felt hopeless, alone and started having suicidal thoughts to walk out into traffic. These thoughts were fleeting and instead he presented to the ED for help. formulation/clincal reasoning: hx of depression well treated with Bupropion XL 450mg; depression mostly worsens when in active substance abuse. Denies hx of manic type symptoms (with some hesitancy). Will continue on Bupropion, clonidine, melatonin which he takes regularly. Pt asking for program. Hospital course: 03/02 pt reports that he was never really suicidal and never had any intention or plans for self harm. He slept well and reports he feeling better; says depression is still there a little bit... but increases when he thinks about homelessness which triggers a strong reaction. Discussed aftercare and patients says he's not ready yet, that his mind still needs to heal, but he very much wants to attend a [facility]/substance abuse program. Pt however refuses to go to [facility], saying he's been there and left early since it's too stringent and confining. Orthopaedic Surgeon shared that he can pursue other options but if refuses [facility] and other options do not materialize, patient should understand that plan B will be a senior care; pt found this idea upsetting but still refused to attend [facility]. Discussed emotional reactivity and whether to add another medication; did not discuss options yet, but patient said he would consider. 03/06 Patient reports that his mood is better; feels medications are helpful. Reports much anxiety and asks for clonazepam; music writer reviewed [facility] and pt has not been prescribed clonazepam since August; discussed risks of this med. Orthopaedic Surgeon agreed to order just while on inpt unit given acuity, but not to be discharged with to which pt agreed and instead would try low dose seroquel. -pt going to groups Patient is stable on current medication regimen Plan: cv q15 continue meds Patient educated on: diagnosis, medication risk/benefits, substance abuse and therapeutic strategies Informed Consent: understands Reason for continued inpatient stay Substantial Risk for: stable for discharge and rapid decompensation Time Spent With Patient Time: Total time managing care of this patient today ____ minutes.
[2024-03-06] MEDS: buPROPion HCl XL 150 MG TAB.ER.24H PO (12:38)
[2024-03-06 15:27] VITALS: BP 110/76
[2024-03-06] MEDS: clonazePAM 0.5 MG TABLET PO ×2 (15:27→17:37)
[2024-03-06] MEDS: hydrOXYzine HCL 50 MG TABLET PO (17:37)
[2024-03-06] MEDS: QUEtiapine Fumarate 25 MG TABLET 12.5 MG PO (19:53)
[2024-03-06] MEDS: Melatonin 3 MG TABLET 9 MG PO (19:53)
[2024-03-06 20:00] VITALS: BP 99/65; PULSE 88; TEMP 36; O2SAT 95
[2024-03-07] MEDS: methADONE HCl 20 MG/2 ML ORAL.CONC 185 MG PO (07:46)
[2024-03-07] MEDS: buPROPion HCl XL 300 MG TAB.ER.24H PO (07:56)
[2024-03-07 08:40] VITALS: BP 113/57; PULSE 83; RESP 18; TEMP 36.6; O2SAT 97
--- NOTE | 2024-03-07 08:42 | HO.PSYCHPN ---
Subjective Subjective Date of Service: 03/07/24 Reason For Visit: unspecified bipolar D/o, unspecified opioid abuse Interim History: Met with patient; discussed with team pt reports mood is decent and that he's finding low dose seroquel helpful for anxiety and wants to continue with it. Pt is going to groups and still hoping to get into a program. He's eating and sleeping well. Pt asked for help getting in touch w/ uncle to bring him cloths. Discussed anxiety more and pt denies any OCD type symptoms. Mental Status Exam Mental Status Exam Narrative: Pt is alert and oriented; behavior is cooperative, friendly and calm; patient is not in distress; dressed in hospital attire with unkempt hair but with adequate hygiene; mood is described as decent and affect congruent, calm; eye contact appropriate; Speech is normal rate, volume and prosody and not pressured; no psychomotor agitation/retardation present; thought process is organized and goal directed; Thought content is on tx and aftercare; otherwise pertinent to relevant topics and without any delusional content, paranoid ideations or grandiosity; denies any SI/HI. Denies AVH and there is no evidence of perceptual disturbance. Patients insight and judgment are intact. Patient Appearance: Disheveled and Unkempt Patient Orientation: Person and Situation Level of Consciousness: Awake and Appropriate Patient Behavior: Guarded and Passive Mood Description: Withdrawn Affect Description: Constricted Patient Cognition Impaired: Yes Ability to Follow Directions: Good Speech Pattern: Clear Hallucinations: None Delusions: Ideas of Reference Thought Process: Distracted and Slowed Thinking Thought Content: positive for Otho and positive for Poverty of Content Judgement: Poor Diagnostics Vital Signs (24Hr): Vital Signs - 24 hr 03/06/24 09:14 03/06/24 15:27 03/06/24 20:00 Temperature 96.8 F Pulse Rate 88 Respiratory Rate Blood Pressure 115/63 110/76 99/65 Pulse Oximetry 95 Oxygen Delivery Method Room Air 03/07/24 08:40 Temperature 97.8 F Pulse Rate 83 Respiratory Rate 18 Blood Pressure 113/57 L Pulse Oximetry 97 Oxygen Delivery Method Room Air BMI result Body Mass Index 26.6 Labs 03/02/24 08:05 03/01/24 08:15 Medications Medications Current Medications Acetaminophen (Acetaminophen 325 Mg Tablet) 650 mg PO Q6H PRN PRN Reason: Headache/Pain Mild Scale (1-3) Al Hydroxide/Mg Hydroxide (Magnesium Hydrox/Alum Hydrox 30 Ml Oral.Susp) 30 ml PO Q6H PRN PRN Reason: Heartburn/Nausea Bupropion HCl (Bupropion Hcl Xl 300 Mg Tab.Er.24h) 300 mg PO DAILY [facility] Last Admin: 03/07/24 07:56 Dose: 300 mg Bupropion HCl (Bupropion Hcl Xl 150 Mg Tab.Er.24h) 150 mg PO DAILY@1300 [facility] Last Admin: 03/06/24 12:38 Dose: 150 mg Clonazepam (Clonazepam 0.5 Mg Tablet) 0.5 mg PO BID PRN PRN Reason: anxiety/restlessness Last Admin: 03/06/24 17:37 Dose: 0.5 mg Clonidine HCl (Clonidine Hcl 0.2 Mg Tablet) 0.2 mg PO TID PRN; Protocol PRN Reason: anxiety Last Admin: 03/06/24 15:27 Dose: 0.2 mg Hydroxyzine HCl (Hydroxyzine Hcl 50 Mg Tablet) 50 mg PO Q6H PRN PRN Reason: Anxiety Last Admin: 03/06/24 17:37 Dose: 50 mg Magnesium Hydroxide (Milk Of Magnesia 30 Ml Oral.Susp) 30 ml PO DAILY PRN PRN Reason: Constipation Melatonin (Melatonin 3 Mg Tablet) 9 mg PO BEDTIME [facility] Last Admin: 03/06/24 19:53 Dose: 9 mg Methadone HCl (Methadone Hcl 20 Mg/2 Ml Oral.Conc) 185 mg PO DAILY@0800 [facility] Last Admin: 03/07/24 07:46 Dose: 185 mg Nicotine Polacrilex (Nicotine Polacrilex 2 Mg Gum) 4 mg BUCCAL Q2H PRN PRN Reason: Nicotine Cravings Last Admin: 03/06/24 19:53 Dose: 4 mg Quetiapine Fumarate (Quetiapine Fumarate 25 Mg Tablet) 12.5 mg PO TID PRN PRN Reason: anxiety Last Admin: 03/06/24 19:53 Dose: 12.5 mg Trazodone HCl (Trazodone Hcl 50 Mg Tablet) 50 mg PO BEDTIME MRX1 PRN PRN Reason: Insomnia Allergies Allergies Allergy/AdvReac Type Severity Reaction Status Date / Time Unable to Assess Allergy Verified 03/01/24 06:40 Assessment & Plan Assessment & Plan (1) MDD (major depressive disorder), recurrent severe, without psychosis: Status: Acute Code(s): F33.2 - Major depressive disorder, recurrent severe without psychotic features (2) Cocaine use disorder: Status: Acute Code(s): F14.10 - Cocaine abuse, uncomplicated (3) Opioid use disorder: Status: Acute Code(s): F11.90 - Opioid use, unspecified, uncomplicated (4) Homeless: Status: Acute Code(s): Z59.00 - Homelessness unspecified Plan Patient is a 33-year-old male with history of depression, cocaine/fentanyl use disorder, who presents for worsening depression SI with plan to walk in traffic, in the face of homelessness and chronic substance abuse. Patient reports that he was in a psychiatric hospital about a month ago where his mood significantly improved. After discharge, he remained sober for few days but soon relapsed. He has been homeless, sleeping on the street, and boiled in cocaine and fentanyl abuse. Patient reports that this cycle just made his depression worse to the point where he felt hopeless, alone and started having suicidal thoughts to walk out into traffic. These thoughts were fleeting and instead he presented to the ED for help. formulation/clincal reasoning: hx of depression well treated with Bupropion XL 450mg; depression mostly worsens when in active substance abuse. Denies hx of manic type symptoms (with some hesitancy). Will continue on Bupropion, clonidine, melatonin which he takes regularly. Characterlogical component. Pt asking for program. Hospital course: 03/02 pt reports that he was never really suicidal and never had any intention or plans for self harm. He slept well and reports he feeling better; says depression is still there a little bit... but increases when he thinks about homelessness which triggers a strong reaction. Discussed aftercare and patients says he's not ready yet, that his mind still needs to heal, but he very much wants to attend a [facility]/substance abuse program. Pt however refuses to go to [facility], saying he's been there and left early since it's too stringent and confining. Educator Senior [employer] shared that he can pursue other options but if refuses [facility] and other options do not materialize, patient should understand that plan B will be a usp; pt found this idea upsetting but still refused to attend [facility]. Discussed emotional reactivity and whether to add another medication; did not discuss options yet, but patient said he would consider. 03/06 Patient reports that his mood is better; feels medications are helpful. Reports much anxiety and asks for clonazepam; racebook writer reviewed [facility] and pt has not been prescribed clonazepam since August; discussed risks of this med. Educator Senior Clinical agreed to order just while on inpt unit given acuity, but not to be discharged with to which pt agreed and instead would try low dose seroquel. -pt going to groups 03/07 remains stable, good mood; in good behavioral and impulse control; attending groups and hoping to get accepted to program Patient is stable on current medication regimen Plan: cv q15 continue Seroquel 12.5mg prn for anxiety; pt says helping continue Wellbutrin XL 450mg in divided dose continue clonidine continue methadone added clonazepam 0.5mg bid prn for anxiety; pt understands just temporary on unit and will not be discharged on this med Patient educated on: diagnosis, medication risk/benefits, substance abuse and therapeutic strategies Informed Consent: understands Reason for continued inpatient stay Substantial Risk for: stable for discharge Time Spent With Patient Time: Total time managing care of this patient today ____ minutes.
[2024-03-07] MEDS: Nicotine Polacrilex 2 MG GUM 4 MG BUCCAL ×4 (08:45→22:37)
[2024-03-07 09:02] VITALS: BP 148/73
[2024-03-07] MEDS: clonazePAM 0.5 MG TABLET PO ×2 (09:02→14:29)
[2024-03-07] MEDS: hydrOXYzine HCL 50 MG TABLET PO ×3 (09:02→22:40)
[2024-03-07] MEDS: cloNIDine HCL 0.2 MG TABLET PO ×3 (09:02→17:45)
[2024-03-07] MEDS: buPROPion HCl XL 150 MG TAB.ER.24H PO (12:32)
[2024-03-07 13:22] VITALS: BP 127/69
[2024-03-07] MEDS: QUEtiapine Fumarate 25 MG TABLET 12.5 MG PO ×3 (13:22→19:29)
[2024-03-07 17:45] VITALS: BP 117/59
[2024-03-07] MEDS: Melatonin 3 MG TABLET 9 MG PO (19:29)
[2024-03-07 20:00] VITALS: BP 117/81; PULSE 98; RESP 16; O2SAT 97
[2024-03-08] MEDS: methADONE HCl 20 MG/2 ML ORAL.CONC 185 MG PO (07:46)
[2024-03-08] MEDS: buPROPion HCl XL 300 MG TAB.ER.24H PO (07:46)
[2024-03-08] MEDS: Nicotine Polacrilex 2 MG GUM 4 MG BUCCAL ×5 (08:41→23:25)
[2024-03-08 08:55] VITALS: BP 99/56; PULSE 84; RESP 16; TEMP 36.6; O2SAT 97
[2024-03-08] MEDS: hydrOXYzine HCL 50 MG TABLET PO ×2 (09:07→19:46)
[2024-03-08 09:08] VITALS: BP 119/67
[2024-03-08] MEDS: clonazePAM 0.5 MG TABLET PO ×2 (09:08→17:07)
[2024-03-08] MEDS: QUEtiapine Fumarate 25 MG TABLET 12.5 MG PO ×2 (09:08→19:46)
[2024-03-08] MEDS: cloNIDine HCL 0.2 MG TABLET PO ×3 (09:08→19:46)
[2024-03-08] MEDS: buPROPion HCl XL 150 MG TAB.ER.24H PO (12:54)
[2024-03-08 17:07] VITALS: BP 159/69
--- NOTE | 2024-03-08 17:19 | P.PNPSI_ITS ---
Subjective Subjective Date of Service: 03/08/24 Reason For Visit: unspecified bipolar D/o, unspecified opioid abuse Interim History: Met with patient; discussed with team Patient remains at baseline; says his mood is good. Attending groups. Discussed history of emotional reactivity however patient feels that it is under control, that he struggles with being irritable but knows it is just his own problem and that it is been with him for long time. He feels he does not need any medication adjustments to manage this Mental Status Exam Mental Status Exam Narrative: Pt is alert and oriented; behavior is calm, intermittently irritable; patient is not in distress; dressed in hospital attire with unkempt hair but with adequate hygiene; mood is described as okay and affect congruent, calm; eye contact appropriate; Speech is normal rate, volume and prosody and not pressured; no psychomotor agitation/retardation present; thought process is organized and goal directed; Thought content is on tx and aftercare; otherwise pertinent to relevant topics and without any delusional content, paranoid ideations or grandiosity; denies any SI/HI. Denies AVH and there is no evidence of perceptual disturbance. Patients insight and judgment are intact. Diagnostics Vital Signs (24Hr): Vital Signs - 24 hr 03/07/24 17:45 03/07/24 20:00 03/08/24 08:55 Temperature 97.8 F Pulse Rate 98 84 Respiratory Rate 16 16 Blood Pressure 117/59 L 117/81 99/56 L Pulse Oximetry 97 97 Oxygen Delivery Method Room Air Room Air 03/08/24 09:08 03/08/24 17:07 Temperature Pulse Rate Respiratory Rate Blood Pressure 119/67 159/69 H Pulse Oximetry Oxygen Delivery Method BMI result Body Mass Index 26.6 Labs 03/02/24 08:05 03/01/24 08:15 Medications Medications Current Medications Acetaminophen (Acetaminophen 325 Mg Tablet) 650 mg PO Q6H PRN PRN Reason: Headache/Pain Mild Scale (1-3) Al Hydroxide/Mg Hydroxide (Magnesium Hydrox/Alum Hydrox 30 Ml Oral.Susp) 30 ml PO Q6H PRN PRN Reason: Heartburn/Nausea Bupropion HCl (Bupropion Hcl Xl 300 Mg Tab.Er.24h) 300 mg PO DAILY [facility] Last Admin: 03/08/24 07:46 Dose: 300 mg Bupropion HCl (Bupropion Hcl Xl 150 Mg Tab.Er.24h) 150 mg PO DAILY@1300 [facility] Last Admin: 03/08/24 12:54 Dose: 150 mg Clonazepam (Clonazepam 0.5 Mg Tablet) 0.5 mg PO BID PRN PRN Reason: anxiety/restlessness Last Admin: 03/08/24 17:07 Dose: 0.5 mg Clonidine HCl (Clonidine Hcl 0.2 Mg Tablet) 0.2 mg PO TID PRN; Protocol PRN Reason: anxiety Last Admin: 03/08/24 17:07 Dose: 0.2 mg Hydroxyzine HCl (Hydroxyzine Hcl 50 Mg Tablet) 50 mg PO Q6H PRN PRN Reason: Anxiety Last Admin: 03/08/24 09:07 Dose: 50 mg Magnesium Hydroxide (Milk Of Magnesia 30 Ml Oral.Susp) 30 ml PO DAILY PRN PRN Reason: Constipation Melatonin (Melatonin 3 Mg Tablet) 9 mg PO BEDTIME [facility] Last Admin: 03/07/24 19:29 Dose: 9 mg Methadone HCl (Methadone Hcl 20 Mg/2 Ml Oral.Conc) 185 mg PO DAILY@0800 [facility] Last Admin: 03/08/24 07:46 Dose: 185 mg Nicotine Polacrilex (Nicotine Polacrilex 2 Mg Gum) 4 mg BUCCAL Q2H PRN PRN Reason: Nicotine Cravings Last Admin: 03/08/24 12:54 Dose: 4 mg Quetiapine Fumarate (Quetiapine Fumarate 25 Mg Tablet) 12.5 mg PO TID PRN PRN Reason: anxiety Last Admin: 03/08/24 09:08 Dose: 12.5 mg Trazodone HCl (Trazodone Hcl 50 Mg Tablet) 50 mg PO BEDTIME MRX1 PRN PRN Reason: Insomnia Allergies Allergies Allergy/AdvReac Type Severity Reaction Status Date / Time Unable to Assess Allergy Verified 03/01/24 06:40 Assessment & Plan Assessment & Plan (1) MDD (major depressive disorder), recurrent severe, without psychosis: Status: Acute Code(s): F33.2 - Major depressive disorder, recurrent severe without psychotic features (2) Cocaine use disorder: Status: Acute Code(s): F14.10 - Cocaine abuse, uncomplicated (3) Opioid use disorder: Status: Acute Code(s): F11.90 - Opioid use, unspecified, uncomplicated (4) Homeless: Status: Acute Code(s): Z59.00 - Homelessness unspecified Plan Patient is a 33-year-old male with history of depression, cocaine/fentanyl use disorder, who presents for worsening depression SI with plan to walk in traffic, in the face of homelessness and chronic substance abuse. Patient reports that he was in a psychiatric hospital about a month ago where his mood significantly improved. After discharge, he remained sober for few days but soon relapsed. He has been homeless, sleeping on the street, and boiled in cocaine and fentanyl abuse. Patient reports that this cycle just made his depression worse to the point where he felt hopeless, alone and started having suicidal thoughts to walk out into traffic. These thoughts were fleeting and instead he presented to the ED for help. formulation/clincal reasoning: hx of depression well treated with Bupropion XL 450mg; depression mostly worsens when in active substance abuse. Denies hx of manic type symptoms (with some hesitancy). Will continue on Bupropion, clonidine, melatonin which he takes regularly. Characterlogical component. Pt asking for program. Hospital course: 03/02 pt reports that he was never really suicidal and never had any intention or plans for self harm. He slept well and reports he feeling better; says depression is still there a little bit... but increases when he thinks about homelessness which triggers a strong reaction. Discussed aftercare and patients says he's not ready yet, that his mind still needs to heal, but he very much wants to attend a [facility]/substance abuse program. Pt however refuses to go to [facility], saying he's been there and left early since it's too stringent and confining. Operator [employer] shared that he can pursue other options but if refuses [facility] and other options do not materialize, patient should understand that plan B will be a long-term; pt found this idea upsetting but still refused to attend [facility]. Discussed emotional reactivity and whether to add another medication; did not discuss options yet, but patient said he would consider. 03/06 Patient reports that his mood is better; feels medications are helpful. Reports much anxiety and asks for clonazepam; ticket writer reviewed [facility] and pt has not been prescribed clonazepam since August; discussed risks of this med. Operator [employer] agreed to order just while on inpt unit given acuity, but not to be discharged with to which pt agreed and instead would try low dose seroquel. -pt going to groups 03/07 remains stable, good mood; in good behavioral and impulse control; attending groups and hoping to get accepted to program 03/08 Patient remains at baseline; says his mood is good. Attending groups. Discussed history of emotional reactivity however patient feels that it is under control, that he struggles with being irritable but knows it is just his own problem and that it is been with him for long time. He feels he does not need any medication adjustments to manage this Patient is stable on current medication regimen Plan: cv q15 continue Seroquel 12.5mg prn for anxiety; pt says helping continue Wellbutrin XL 450mg in divided dose continue clonidine continue methadone added clonazepam 0.5mg bid prn for anxiety; pt understands just temporary on unit and will not be discharged on this med Patient educated on: diagnosis, medication risk/benefits and therapeutic strategies Informed Consent: understands Reason for continued inpatient stay Substantial Risk for: stable for discharge Time Spent With Patient Time: Total time managing care of this patient today ____ minutes.
[2024-03-08 20:00] VITALS: BP 122/64; PULSE 90; RESP 16; TEMP 36.3; O2SAT 96
[2024-03-08] MEDS: Melatonin 3 MG TABLET 9 MG PO (20:01)
[2024-03-09] MEDS: methADONE HCl 20 MG/2 ML ORAL.CONC 185 MG PO (07:18)
[2024-03-09] MEDS: buPROPion HCl XL 300 MG TAB.ER.24H PO (07:21)
[2024-03-09 08:00] VITALS: BP 131/71; PULSE 87; RESP 16; TEMP 36.4; O2SAT 95
[2024-03-09] MEDS: Nicotine Polacrilex 2 MG GUM 4 MG BUCCAL ×5 (08:46→19:59)
[2024-03-09] MEDS: clonazePAM 0.5 MG TABLET PO ×2 (09:04→14:16)
[2024-03-09] MEDS: hydrOXYzine HCL 50 MG TABLET PO ×2 (09:05→17:33)
[2024-03-09] MEDS: QUEtiapine Fumarate 25 MG TABLET 12.5 MG PO ×2 (09:05→14:17)
[2024-03-09 09:06] VITALS: BP 131/71
[2024-03-09] MEDS: cloNIDine HCL 0.2 MG TABLET PO ×2 (09:06→14:25)
[2024-03-09] MEDS: buPROPion HCl XL 150 MG TAB.ER.24H PO (12:21)
[2024-03-09 14:25] VITALS: BP 114/59
--- NOTE | 2024-03-09 15:18 | PC.NURSE ---
Pt insisted he wanted to take klonopin, seroquel, & clonidine PRNs all at the same time for maximum effect. Per Dr Carter OK to give.
--- NOTE | 2024-03-09 17:33 | P.PNPSI_ITS ---
Subjective Subjective Date of Service: 03/09/24 Reason For Visit: unspecified bipolar D/o, unspecified opioid abuse Interim History: Met with patient; discussed with team Patient said that he is fine; has no complaints and no request. Some irritability but expressed gratitude having phone interview and getting into program. Discussed plan is for him to DC to the program on Wednesday when they have a bed open for him. Reiterated earlier conversation and patient understands that if for some reason he change his mind about the program, the only other option would be for him to go to a long term. Mental Status Exam Mental Status Exam Narrative: Pt is alert and oriented; behavior is calm, intermittently irritable; patient is not in distress; dressed in hospital attire with unkempt hair but with adequate hygiene; mood is described as fine and affect congruent, calm; eye contact appropriate; Speech is normal rate, volume and prosody and not pressured; no psychomotor agitation/retardation present; thought process is organized and goal directed; Thought content is on tx and aftercare; otherwise pertinent to relevant topics and without any delusional content, paranoid ideations or grandiosity; denies any SI/HI. Denies AVH and there is no evidence of perceptual disturbance. Patients insight and judgment are intact. Diagnostics Vital Signs (24Hr): Vital Signs - 24 hr 03/08/24 20:00 03/09/24 08:00 03/09/24 09:06 Temperature 97.4 F 97.5 F Pulse Rate 90 87 Respiratory Rate 16 16 Blood Pressure 122/64 131/71 131/71 Pulse Oximetry 96 95 Oxygen Delivery Method Room Air Room Air 03/09/24 14:25 Temperature Pulse Rate Respiratory Rate Blood Pressure 114/59 L Pulse Oximetry Oxygen Delivery Method BMI result Body Mass Index 26.6 Labs 03/02/24 08:05 03/01/24 08:15 Medications Medications Current Medications Acetaminophen (Acetaminophen 325 Mg Tablet) 650 mg PO Q6H PRN PRN Reason: Headache/Pain Mild Scale (1-3) Al Hydroxide/Mg Hydroxide (Magnesium Hydrox/Alum Hydrox 30 Ml Oral.Susp) 30 ml PO Q6H PRN PRN Reason: Heartburn/Nausea Bupropion HCl (Bupropion Hcl Xl 300 Mg Tab.Er.24h) 300 mg PO DAILY [facility] Last Admin: 03/09/24 07:21 Dose: 300 mg Bupropion HCl (Bupropion Hcl Xl 150 Mg Tab.Er.24h) 150 mg PO DAILY@1300 [facility] Last Admin: 03/09/24 12:21 Dose: 150 mg Clonazepam (Clonazepam 0.5 Mg Tablet) 0.5 mg PO BID PRN PRN Reason: anxiety/restlessness Last Admin: 03/09/24 14:16 Dose: 0.5 mg Clonidine HCl (Clonidine Hcl 0.2 Mg Tablet) 0.2 mg PO TID PRN; Protocol PRN Reason: anxiety Last Admin: 03/09/24 14:25 Dose: 0.2 mg Hydroxyzine HCl (Hydroxyzine Hcl 50 Mg Tablet) 50 mg PO Q6H PRN PRN Reason: Anxiety Last Admin: 03/09/24 09:05 Dose: 50 mg Magnesium Hydroxide (Milk Of Magnesia 30 Ml Oral.Susp) 30 ml PO DAILY PRN PRN Reason: Constipation Melatonin (Melatonin 3 Mg Tablet) 9 mg PO BEDTIME [facility] Last Admin: 03/08/24 20:01 Dose: 9 mg Methadone HCl (Methadone Hcl 20 Mg/2 Ml Oral.Conc) 185 mg PO DAILY@0800 [facility] Last Admin: 03/09/24 07:18 Dose: 185 mg Nicotine Polacrilex (Nicotine Polacrilex 2 Mg Gum) 4 mg BUCCAL Q2H PRN PRN Reason: Nicotine Cravings Last Admin: 03/09/24 14:26 Dose: 4 mg Quetiapine Fumarate (Quetiapine Fumarate 25 Mg Tablet) 12.5 mg PO TID PRN PRN Reason: anxiety Last Admin: 03/09/24 14:17 Dose: 12.5 mg Trazodone HCl (Trazodone Hcl 50 Mg Tablet) 50 mg PO BEDTIME MRX1 PRN PRN Reason: Insomnia Allergies Allergies Allergy/AdvReac Type Severity Reaction Status Date / Time Unable to Assess Allergy Verified 03/01/24 06:40 Assessment & Plan Assessment & Plan (1) MDD (major depressive disorder), recurrent severe, without psychosis: Status: Acute Code(s): F33.2 - Major depressive disorder, recurrent severe without psychotic features (2) Cocaine use disorder: Status: Acute Code(s): F14.10 - Cocaine abuse, uncomplicated (3) Opioid use disorder: Status: Acute Code(s): F11.90 - Opioid use, unspecified, uncomplicated (4) Homeless: Status: Acute Code(s): Z59.00 - Homelessness unspecified Plan Patient is a 33-year-old male with history of depression, cocaine/fentanyl use disorder, who presents for worsening depression SI with plan to walk in traffic, in the face of homelessness and chronic substance abuse. Patient reports that he was in a psychiatric hospital about a month ago where his mood significantly improved. After discharge, he remained sober for few days but soon relapsed. He has been homeless, sleeping on the street, and boiled in cocaine and fentanyl abuse. Patient reports that this cycle just made his depression worse to the point where he felt hopeless, alone and started having suicidal thoughts to walk out into traffic. These thoughts were fleeting and instead he presented to the ED for help. formulation/clincal reasoning: hx of depression well treated with Bupropion XL 450mg; depression mostly worsens when in active substance abuse. Denies hx of manic type symptoms (with some hesitancy). Will continue on Bupropion, clonidine, melatonin which he takes regularly. Characterlogical component. Pt asking for program. Hospital course: 03/02 pt reports that he was never really suicidal and never had any intention or plans for self harm. He slept well and reports he feeling better; says depression is still there a little bit... but increases when he thinks about homelessness which triggers a strong reaction. Discussed aftercare and patients says he's not ready yet, that his mind still needs to heal, but he very much wants to attend a [facility]/substance abuse program. Pt however refuses to go to [facility], saying he's been there and left early since it's too stringent and confining. Scrummaster shared that he can pursue other options but if refuses [facility] and other options do not materialize, patient should understand that plan B will be a long term; pt found this idea upsetting but still refused to attend [facility]. Discussed emotional reactivity and whether to add another medication; did not discuss options yet, but patient said he would consider. 03/06 Patient reports that his mood is better; feels medications are helpful. Reports much anxiety and asks for clonazepam; typewriter assembler reviewed [facility] and pt has not been prescribed clonazepam since August; discussed risks of this med. Scrummaster agreed to order just while on inpt unit given acuity, but not to be discharged with to which pt agreed and instead would try low dose seroquel. -pt going to groups 03/07 remains stable, good mood; in good behavioral and impulse control; attending groups and hoping to get accepted to program 03/08 Patient remains at baseline; says his mood is good. Attending groups. Discussed history of emotional reactivity however patient feels that it is under control, that he struggles with being irritable but knows it is just his own problem and that it is been with him for long time. He feels he does not need any medication adjustments to manage this 03/09 Patient said that he is fine; has no complaints and no request. Some irritability but expressed gratitude having phone interview and getting into program. Discussed plan is for him to DC to the program on Wednesday when they have a bed open for him. Reiterated earlier conversation and patient understands that if for some reason he change his mind about the program, the only other option would be for him to go to a long term. Patient is stable on current medication regimen Plan: cv q15 continue Seroquel 12.5mg prn for anxiety; pt says helping continue Wellbutrin XL 450mg in divided dose continue clonidine continue methadone added clonazepam 0.5mg bid prn for anxiety; pt understands just temporary on unit and will not be discharged on this med Patient educated on: diagnosis, medication risk/benefits and therapeutic strategies Informed Consent: understands Reason for continued inpatient stay Substantial Risk for: stable for discharge Time Spent With Patient Time: Total time managing care of this patient today ____ minutes.
[2024-03-09 20:00] VITALS: BP 92/50; PULSE 89; RESP 16; TEMP 36.3; O2SAT 96
[2024-03-09] MEDS: Melatonin 3 MG TABLET 9 MG PO (20:00)
[2024-03-10] MEDS: methADONE HCl 20 MG/2 ML ORAL.CONC 185 MG PO (07:08)
[2024-03-10 08:00] VITALS: BP 102/62; PULSE 89; TEMP 36.9; O2SAT 97
[2024-03-10] MEDS: buPROPion HCl XL 300 MG TAB.ER.24H PO (08:27)
[2024-03-10] MEDS: Nicotine Polacrilex 2 MG GUM 4 MG BUCCAL ×3 (08:32→19:49)
[2024-03-10] MEDS: QUEtiapine Fumarate 25 MG TABLET 12.5 MG PO ×3 (09:11→19:49)
[2024-03-10] MEDS: cloNIDine HCL 0.2 MG TABLET PO ×3 (09:12→19:49)
[2024-03-10] MEDS: hydrOXYzine HCL 50 MG TABLET PO ×2 (09:13→16:27)
[2024-03-10] MEDS: buPROPion HCl XL 150 MG TAB.ER.24H PO (12:36)
[2024-03-10] MEDS: clonazePAM 0.5 MG TABLET PO ×2 (12:36→17:40)
[2024-03-10 13:33] VITALS: BP 124/82
--- NOTE | 2024-03-10 15:42 | P.PNPSI_ITS ---
Subjective Subjective Date of Service: 03/10/24 Reason For Visit: unspecified bipolar D/o, unspecified opioid abuse Interim History: Met with patient; discussed with team Patient remains intermittently irritable; otherwise says he is doing fine, meds are fine. Reports some minor left lower tooth pain; on exam no evidence of infection, gum abscess. Patient says looking forward to discharging Wednesday to program Mental Status Exam Mental Status Exam Narrative: Pt is alert and oriented; behavior is calm, intermittently irritable; patient is not in distress; dressed in hospital attire with unkempt hair but with adequate hygiene; mood is described as fine and affect congruent, calm; eye contact appropriate; Speech is normal rate, volume and prosody and not pressured; no psychomotor agitation/retardation present; thought process is organized and goal directed; Thought content is on tx and aftercare; otherwise pertinent to relevant topics and without any delusional content, paranoid ideations or grandiosity; denies any SI/HI. Denies AVH and there is no evidence of perceptual disturbance. Patients insight and judgment are intact. Diagnostics Vital Signs (24Hr): Vital Signs - 24 hr 03/09/24 20:00 03/10/24 08:00 03/10/24 13:33 Temperature 97.4 F 98.4 F Pulse Rate 89 89 Respiratory Rate 16 Blood Pressure 92/50 L 102/62 124/82 Pulse Oximetry 96 97 Oxygen Delivery Method Room Air Room Air BMI result Body Mass Index 26.6 Labs 03/02/24 08:05 03/01/24 08:15 Medications Medications Current Medications Acetaminophen (Acetaminophen 325 Mg Tablet) 650 mg PO Q6H PRN PRN Reason: Headache/Pain Mild Scale (1-3) Al Hydroxide/Mg Hydroxide (Magnesium Hydrox/Alum Hydrox 30 Ml Oral.Susp) 30 ml PO Q6H PRN PRN Reason: Heartburn/Nausea Bupropion HCl (Bupropion Hcl Xl 300 Mg Tab.Er.24h) 300 mg PO DAILY [facility] Last Admin: 03/10/24 08:27 Dose: 300 mg Bupropion HCl (Bupropion Hcl Xl 150 Mg Tab.Er.24h) 150 mg PO DAILY@1300 [facility] Last Admin: 03/10/24 12:36 Dose: 150 mg Clonazepam (Clonazepam 0.5 Mg Tablet) 0.5 mg PO BID PRN PRN Reason: anxiety/restlessness Last Admin: 03/10/24 12:36 Dose: 0.5 mg Clonidine HCl (Clonidine Hcl 0.2 Mg Tablet) 0.2 mg PO TID PRN; Protocol PRN Reason: anxiety Last Admin: 03/10/24 13:33 Dose: 0.2 mg Hydroxyzine HCl (Hydroxyzine Hcl 50 Mg Tablet) 50 mg PO Q6H PRN PRN Reason: Anxiety Last Admin: 03/10/24 09:13 Dose: 50 mg Magnesium Hydroxide (Milk Of Magnesia 30 Ml Oral.Susp) 30 ml PO DAILY PRN PRN Reason: Constipation Melatonin (Melatonin 3 Mg Tablet) 9 mg PO BEDTIME [facility] Last Admin: 03/09/24 20:00 Dose: 9 mg Methadone HCl (Methadone Hcl 20 Mg/2 Ml Oral.Conc) 185 mg PO DAILY@0800 [facility] Last Admin: 03/10/24 07:08 Dose: 185 mg Nicotine Polacrilex (Nicotine Polacrilex 2 Mg Gum) 4 mg BUCCAL Q2H PRN PRN Reason: Nicotine Cravings Last Admin: 03/10/24 12:36 Dose: 4 mg Quetiapine Fumarate (Quetiapine Fumarate 25 Mg Tablet) 12.5 mg PO TID PRN PRN Reason: anxiety Last Admin: 03/10/24 13:35 Dose: 12.5 mg Trazodone HCl (Trazodone Hcl 50 Mg Tablet) 50 mg PO BEDTIME MRX1 PRN PRN Reason: Insomnia Allergies Allergies Allergy/AdvReac Type Severity Reaction Status Date / Time Unable to Assess Allergy Verified 03/01/24 06:40 Assessment & Plan Assessment & Plan (1) MDD (major depressive disorder), recurrent severe, without psychosis: Status: Acute Code(s): F33.2 - Major depressive disorder, recurrent severe without psychotic features (2) Cocaine use disorder: Status: Acute Code(s): F14.10 - Cocaine abuse, uncomplicated (3) Opioid use disorder: Status: Acute Code(s): F11.90 - Opioid use, unspecified, uncomplicated (4) Homeless: Status: Acute Code(s): Z59.00 - Homelessness unspecified Plan Patient is a 33-year-old male with history of depression, cocaine/fentanyl use disorder, who presents for worsening depression SI with plan to walk in traffic, in the face of homelessness and chronic substance abuse. Patient reports that he was in a psychiatric hospital about a month ago where his mood significantly improved. After discharge, he remained sober for few days but soon relapsed. He has been homeless, sleeping on the street, and boiled in cocaine and fentanyl abuse. Patient reports that this cycle just made his depression worse to the point where he felt hopeless, alone and started having suicidal thoughts to walk out into traffic. These thoughts were fleeting and instead he presented to the ED for help. formulation/clincal reasoning: hx of depression well treated with Bupropion XL 450mg; depression mostly worsens when in active substance abuse. Denies hx of manic type symptoms (with some hesitancy). Will continue on Bupropion, clonidine, melatonin which he takes regularly. Characterlogical component. Pt asking for program. Hospital course: 03/02 pt reports that he was never really suicidal and never had any intention or plans for self harm. He slept well and reports he feeling better; says depression is still there a little bit... but increases when he thinks about homelessness which triggers a strong reaction. Discussed aftercare and patients says he's not ready yet, that his mind still needs to heal, but he very much wants to attend a [facility]/substance abuse program. Pt however refuses to go to [facility], saying he's been there and left early since it's too stringent and confining. Muffle Operator shared that he can pursue other options but if refuses [facility] and other options do not materialize, patient should understand that plan B will be a care home; pt found this idea upsetting but still refused to attend [facility]. Discussed emotional reactivity and whether to add another medication; did not discuss options yet, but patient said he would consider. 03/06 Patient reports that his mood is better; feels medications are helpful. Reports much anxiety and asks for clonazepam; mortgage underwriter reviewed [facility] and pt has not been prescribed clonazepam since August; discussed risks of this med. Muffle Operator agreed to order just while on inpt unit given acuity, but not to be discharged with to which pt agreed and instead would try low dose seroquel. -pt going to groups 03/07 remains stable, good mood; in good behavioral and impulse control; attending groups and hoping to get accepted to program 03/08 Patient remains at baseline; says his mood is good. Attending groups. Discussed history of emotional reactivity however patient feels that it is under control, that he struggles with being irritable but knows it is just his own problem and that it is been with him for long time. He feels he does not need any medication adjustments to manage this 03/09 Patient said that he is fine; has no complaints and no request. Some irritability but expressed gratitude having phone interview and getting into program. Discussed plan is for him to DC to the program on Wednesday when they have a bed open for him. Reiterated earlier conversation and patient understands that if for some reason he change his mind about the program, the only other option would be for him to go to a care home. 03/10 stable; continue current treatment regimen; plans to discharge Wednesday to treatment program Patient is stable on current medication regimen Plan: cv q15 continue Seroquel 12.5mg prn for anxiety; pt says helping continue Wellbutrin XL 450mg in divided dose continue clonidine continue methadone added clonazepam 0.5mg bid prn for anxiety; pt understands just temporary on unit and will not be discharged on this med Patient educated on: diagnosis, medication risk/benefits, substance abuse, therapeutic strategies and medical condition Informed Consent: understands Reason for continued inpatient stay Substantial Risk for: stable for discharge Time Spent With Patient Time: Total time managing care of this patient today ____ minutes.
[2024-03-10 19:30] VITALS: BP 98/47
[2024-03-10 19:35] VITALS: BP 102/58; PULSE 84; TEMP 35.9; O2SAT 93
[2024-03-10] MEDS: Melatonin 3 MG TABLET 9 MG PO (19:49)
[2024-03-11] MEDS: methADONE HCl 20 MG/2 ML ORAL.CONC 185 MG PO (07:50)
[2024-03-11] MEDS: buPROPion HCl XL 300 MG TAB.ER.24H PO (07:57)
[2024-03-11] MEDS: Nicotine Polacrilex 2 MG GUM 4 MG BUCCAL ×4 (07:58→19:50)
[2024-03-11 08:00] VITALS: RESP 16
[2024-03-11] MEDS: QUEtiapine Fumarate 25 MG TABLET 12.5 MG PO ×4 (09:16→19:50)
[2024-03-11 09:17] VITALS: BP 121/84
[2024-03-11] MEDS: cloNIDine HCL 0.2 MG TABLET PO ×3 (09:17→17:42)
[2024-03-11] MEDS: hydrOXYzine HCL 50 MG TABLET PO ×2 (09:17→16:03)
[2024-03-11] MEDS: clonazePAM 0.5 MG TABLET PO ×2 (09:17→14:06)
[2024-03-11] MEDS: Benzocaine 20 % Oral Gel 9 GM TUBE 1 APPL MUCOUS MEM (09:18)
--- NOTE | 2024-03-11 10:43 | HO.PSYCHPN ---
Subjective Subjective Date of Service: 03/11/24 Reason For Visit: unspecified bipolar D/o, unspecified opioid abuse Subjective Notes: Conditional Voluntary Interim History: Patient was seen and discussed in rounds today. Records and plans were reviewed. He has been stable with no complaints. He has periods of irritability and being argumentative. Some mood lability. He is using his PRNs with good effect. No SI. Sleeping adequately and eating adequately. No changes were made today Review of Systems Review of Systems Yes all other systems are reviewed and are negative Mental Status Exam Mental Status Exam Narrative: In today's visit he is alert, oriented and pleasant. Normal speech. Moderate eye contact. Constricted affect. No acute signs of psychosis. Possible paranoia and delusions reported. No SI. Able to move all limbs. No gait abnormalities. Judgment is intact Diagnostics Vital Signs (24Hr): Vital Signs - 24 hr 03/10/24 13:33 03/10/24 19:30 03/10/24 19:35 Temperature 96.7 F L Pulse Rate 84 Respiratory Rate Blood Pressure 124/82 98/47 L 102/58 L Pulse Oximetry 93 03/11/24 08:00 03/11/24 09:17 Temperature Pulse Rate Respiratory Rate 16 Blood Pressure 121/84 Pulse Oximetry BMI result Body Mass Index 26.6 Labs 03/02/24 08:05 03/01/24 08:15 Medications Medications Current Medications Acetaminophen (Acetaminophen 325 Mg Tablet) 650 mg PO Q6H PRN PRN Reason: Headache/Pain Mild Scale (1-3) Al Hydroxide/Mg Hydroxide (Magnesium Hydrox/Alum Hydrox 30 Ml Oral.Susp) 30 ml PO Q6H PRN PRN Reason: Heartburn/Nausea Benzocaine (Benzocaine 20 % Oral Gel 9 Gm Tube) 1 appl MUCOUS MEM QID PRN; Protocol PRN Reason: lower right tooth pain Last Admin: 03/11/24 09:18 Dose: 1 appl Bupropion HCl (Bupropion Hcl Xl 300 Mg Tab.Er.24h) 300 mg PO DAILY [facility] Last Admin: 03/11/24 07:57 Dose: 300 mg Bupropion HCl (Bupropion Hcl Xl 150 Mg Tab.Er.24h) 150 mg PO DAILY@1300 [facility] Last Admin: 03/10/24 12:36 Dose: 150 mg Clonazepam (Clonazepam 0.5 Mg Tablet) 0.5 mg PO BID PRN PRN Reason: anxiety/restlessness Last Admin: 03/11/24 09:17 Dose: 0.5 mg Clonidine HCl (Clonidine Hcl 0.2 Mg Tablet) 0.2 mg PO TID PRN; Protocol PRN Reason: anxiety Last Admin: 03/11/24 09:17 Dose: 0.2 mg Hydroxyzine HCl (Hydroxyzine Hcl 50 Mg Tablet) 50 mg PO Q6H PRN PRN Reason: Anxiety Last Admin: 03/11/24 09:17 Dose: 50 mg Magnesium Hydroxide (Milk Of Magnesia 30 Ml Oral.Susp) 30 ml PO DAILY PRN PRN Reason: Constipation Melatonin (Melatonin 3 Mg Tablet) 9 mg PO BEDTIME [facility] Last Admin: 03/10/24 19:49 Dose: 9 mg Methadone HCl (Methadone Hcl 20 Mg/2 Ml Oral.Conc) 185 mg PO DAILY@0800 [facility] Last Admin: 03/11/24 07:50 Dose: 185 mg Nicotine Polacrilex (Nicotine Polacrilex 2 Mg Gum) 4 mg BUCCAL Q2H PRN PRN Reason: Nicotine Cravings Last Admin: 03/11/24 07:58 Dose: 4 mg Quetiapine Fumarate (Quetiapine Fumarate 25 Mg Tablet) 12.5 mg PO TID PRN PRN Reason: anxiety Last Admin: 03/11/24 09:16 Dose: 12.5 mg Trazodone HCl (Trazodone Hcl 50 Mg Tablet) 50 mg PO BEDTIME MRX1 PRN PRN Reason: Insomnia Allergies Allergies Allergy/AdvReac Type Severity Reaction Status Date / Time Unable to Assess Allergy Verified 03/01/24 06:40 Assessment & Plan Assessment & Plan (1) MDD (major depressive disorder), recurrent severe, without psychosis: Status: Acute Code(s): F33.2 - Major depressive disorder, recurrent severe without psychotic features (2) Cocaine use disorder: Status: Acute Code(s): F14.10 - Cocaine abuse, uncomplicated (3) Opioid use disorder: Status: Acute Code(s): F11.90 - Opioid use, unspecified, uncomplicated (4) Homeless: Status: Acute Code(s): Z59.00 - Homelessness unspecified Plan Patient is a 33-year-old male with history of depression, cocaine/fentanyl use disorder, who presents for worsening depression SI with plan to walk in traffic, in the face of homelessness and chronic substance abuse. Patient reports that he was in a psychiatric hospital about a month ago where his mood significantly improved. After discharge, he remained sober for few days but soon relapsed. He has been homeless, sleeping on the street, and boiled in cocaine and fentanyl abuse. Patient reports that this cycle just made his depression worse to the point where he felt hopeless, alone and started having suicidal thoughts to walk out into traffic. These thoughts were fleeting and instead he presented to the ED for help. formulation/clincal reasoning: hx of depression well treated with Bupropion XL 450mg; depression mostly worsens when in active substance abuse. Denies hx of manic type symptoms (with some hesitancy). Will continue on Bupropion, clonidine, melatonin which he takes regularly. Characterlogical component. Pt asking for program. Hospital course: 03/02 pt reports that he was never really suicidal and never had any intention or plans for self harm. He slept well and reports he feeling better; says depression is still there a little bit... but increases when he thinks about homelessness which triggers a strong reaction. Discussed aftercare and patients says he's not ready yet, that his mind still needs to heal, but he very much wants to attend a [facility]/substance abuse program. Pt however refuses to go to [facility], saying he's been there and left early since it's too stringent and confining. Cable Armorer shared that he can pursue other options but if refuses [facility] and other options do not materialize, patient should understand that plan B will be a half-way; pt found this idea upsetting but still refused to attend [facility]. Discussed emotional reactivity and whether to add another medication; did not discuss options yet, but patient said he would consider. 03/06 Patient reports that his mood is better; feels medications are helpful. Reports much anxiety and asks for clonazepam; property underwriter reviewed [facility] and pt has not been prescribed clonazepam since August; discussed risks of this med. Cable Armorer agreed to order just while on inpt unit given acuity, but not to be discharged with to which pt agreed and instead would try low dose seroquel. -pt going to groups 03/07 remains stable, good mood; in good behavioral and impulse control; attending groups and hoping to get accepted to program 03/08 Patient remains at baseline; says his mood is good. Attending groups. Discussed history of emotional reactivity however patient feels that it is under control, that he struggles with being irritable but knows it is just his own problem and that it is been with him for long time. He feels he does not need any medication adjustments to manage this 03/09 Patient said that he is fine; has no complaints and no request. Some irritability but expressed gratitude having phone interview and getting into program. Discussed plan is for him to DC to the program on Wednesday when they have a bed open for him. Reiterated earlier conversation and patient understands that if for some reason he change his mind about the program, the only other option would be for him to go to a half-way. 03/10 stable; continue current treatment regimen; plans to discharge Wednesday to treatment program 03/11:Continue current regimen and plans. Patient is stable on current medication regimen Plan: cv q15 continue Seroquel 12.5mg prn for anxiety; pt says helping continue Wellbutrin XL 450mg in divided dose continue clonidine continue methadone added clonazepam 0.5mg bid prn for anxiety; pt understands just temporary on unit and will not be discharged on this med Reason for continued inpatient stay Substantial Risk for: med/psych decompensation Time Spent With Patient Time: Total time managing care of this patient today ____ minutes.
[2024-03-11] MEDS: buPROPion HCl XL 150 MG TAB.ER.24H PO (12:39)
--- NOTE | 2024-03-11 13:55 | PM.EVENT ---
Event Note Date of Service: 03/11/24 Event Note: Because of a new admission Harrison's room had to be moved and he was not very cooperative and after moving he put cocoa powder on the bed. We approached him with security present and gave him the option of complying with what we need to do or being discharged and he agreed to comply. Time Spent With Patient Time: Total time managing care of this patient today ____ minutes.
[2024-03-11 14:06] VITALS: BP 100/64
[2024-03-11 17:45] VITALS: BP 104/63; PULSE 92
[2024-03-11] MEDS: Melatonin 3 MG TABLET 9 MG PO (19:50)
[2024-03-11 20:00] VITALS: BP 120/69; PULSE 90; RESP 15; O2SAT 93
[2024-03-12] MEDS: methADONE HCl 20 MG/2 ML ORAL.CONC 185 MG PO (07:40)
[2024-03-12 08:00] VITALS: BP 116/58; PULSE 93; RESP 16; TEMP 36.6; O2SAT 97
[2024-03-12] MEDS: buPROPion HCl XL 300 MG TAB.ER.24H PO (08:02)
[2024-03-12] MEDS: Nicotine Polacrilex 2 MG GUM 4 MG BUCCAL ×5 (08:05→19:52)
[2024-03-12 09:15] VITALS: BP 149/67
[2024-03-12] MEDS: clonazePAM 0.5 MG TABLET PO ×2 (09:15→13:19)
[2024-03-12] MEDS: cloNIDine HCL 0.2 MG TABLET PO ×3 (09:15→19:52)
[2024-03-12] MEDS: QUEtiapine Fumarate 25 MG TABLET 12.5 MG PO ×3 (09:16→17:51)
[2024-03-12] MEDS: hydrOXYzine HCL 50 MG TABLET PO ×2 (09:16→15:52)
[2024-03-12] MEDS: Benzocaine 20 % Oral Gel 9 GM TUBE 1 APPL MUCOUS MEM (09:24)
--- NOTE | 2024-03-12 10:01 | P.PNPSI_ITS ---
Subjective Subjective Date of Service: 03/12/24 Reason For Visit: unspecified bipolar D/o, unspecified opioid abuse Subjective Notes: Conditional Voluntary Interim History: Patient was seen and discussed in rounds today. Records and plans were reviewed. He actually settled down after being confronted yesterday because of his acting out and behavior. He is not intrusive and confront active. Eating and sleeping adequately. No complaints or side effects. Slight her debility still present. No changes were made today Review of Systems Review of Systems Yes all other systems are reviewed and are negative Mental Status Exam Mental Status Exam Narrative: In today's visit he is alert, oriented and pleasant. Normal speech. Moderate eye contact. Constricted affect. Slight irritability present. No acute signs of psychosis. Possible paranoia and delusions reported. No SI. Able to move all limbs. No gait abnormalities. Judgment is intact Diagnostics Vital Signs (24Hr): Vital Signs - 24 hr 03/11/24 14:06 03/11/24 17:45 03/11/24 20:00 Temperature Pulse Rate 92 90 Respiratory Rate 15 Blood Pressure 100/64 104/63 120/69 Pulse Oximetry 93 Oxygen Delivery Method 03/12/24 08:00 03/12/24 09:15 Temperature 97.8 F Pulse Rate 93 Respiratory Rate 16 Blood Pressure 116/58 L 149/67 H Pulse Oximetry 97 Oxygen Delivery Method Room Air BMI result Body Mass Index 26.6 Labs 03/02/24 08:05 03/01/24 08:15 Medications Medications Current Medications Acetaminophen (Acetaminophen 325 Mg Tablet) 650 mg PO Q6H PRN PRN Reason: Headache/Pain Mild Scale (1-3) Al Hydroxide/Mg Hydroxide (Magnesium Hydrox/Alum Hydrox 30 Ml Oral.Susp) 30 ml PO Q6H PRN PRN Reason: Heartburn/Nausea Benzocaine (Benzocaine 20 % Oral Gel 9 Gm Tube) 1 appl MUCOUS MEM QID PRN; Protocol PRN Reason: lower right tooth pain Last Admin: 03/12/24 09:24 Dose: 1 appl Bupropion HCl (Bupropion Hcl Xl 300 Mg Tab.Er.24h) 300 mg PO DAILY [facility] Last Admin: 03/12/24 08:02 Dose: 300 mg Bupropion HCl (Bupropion Hcl Xl 150 Mg Tab.Er.24h) 150 mg PO DAILY@1300 [facility] Last Admin: 03/11/24 12:39 Dose: 150 mg Clonazepam (Clonazepam 0.5 Mg Tablet) 0.5 mg PO BID PRN PRN Reason: anxiety/restlessness Last Admin: 03/12/24 09:15 Dose: 0.5 mg Clonidine HCl (Clonidine Hcl 0.2 Mg Tablet) 0.2 mg PO TID PRN; Protocol PRN Reason: anxiety Last Admin: 03/12/24 09:15 Dose: 0.2 mg Hydroxyzine HCl (Hydroxyzine Hcl 50 Mg Tablet) 50 mg PO Q6H PRN PRN Reason: Anxiety Last Admin: 03/12/24 09:16 Dose: 50 mg Magnesium Hydroxide (Milk Of Magnesia 30 Ml Oral.Susp) 30 ml PO DAILY PRN PRN Reason: Constipation Melatonin (Melatonin 3 Mg Tablet) 9 mg PO BEDTIME [facility] Last Admin: 03/11/24 19:50 Dose: 9 mg Methadone HCl (Methadone Hcl 20 Mg/2 Ml Oral.Conc) 185 mg PO DAILY@0800 [facility] Last Admin: 03/12/24 07:40 Dose: 185 mg Nicotine Polacrilex (Nicotine Polacrilex 2 Mg Gum) 4 mg BUCCAL Q2H PRN PRN Reason: Nicotine Cravings Last Admin: 03/12/24 08:05 Dose: 4 mg Quetiapine Fumarate (Quetiapine Fumarate 25 Mg Tablet) 12.5 mg PO TID PRN PRN Reason: anxiety Last Admin: 03/12/24 09:16 Dose: 12.5 mg Trazodone HCl (Trazodone Hcl 50 Mg Tablet) 50 mg PO BEDTIME MRX1 PRN PRN Reason: Insomnia Allergies Allergies Allergy/AdvReac Type Severity Reaction Status Date / Time Unable to Assess Allergy Verified 03/01/24 06:40 Assessment & Plan Assessment & Plan (1) MDD (major depressive disorder), recurrent severe, without psychosis: Status: Acute Code(s): F33.2 - Major depressive disorder, recurrent severe without psychotic features (2) Cocaine use disorder: Status: Acute Code(s): F14.10 - Cocaine abuse, uncomplicated (3) Opioid use disorder: Status: Acute Code(s): F11.90 - Opioid use, unspecified, uncomplicated (4) Homeless: Status: Acute Code(s): Z59.00 - Homelessness unspecified Plan Patient is a 33-year-old male with history of depression, cocaine/fentanyl use disorder, who presents for worsening depression SI with plan to walk in traffic, in the face of homelessness and chronic substance abuse. Patient reports that he was in a psychiatric hospital about a month ago where his mood significantly improved. After discharge, he remained sober for few days but soon relapsed. He has been homeless, sleeping on the street, and boiled in cocaine and fentanyl abuse. Patient reports that this cycle just made his depression worse to the point where he felt hopeless, alone and started having suicidal thoughts to walk out into traffic. These thoughts were fleeting and instead he presented to the ED for help. formulation/clincal reasoning: hx of depression well treated with Bupropion XL 450mg; depression mostly worsens when in active substance abuse. Denies hx of manic type symptoms (with some hesitancy). Will continue on Bupropion, clonidine, melatonin which he takes regularly. Characterlogical component. Pt asking for program. Hospital course: 03/02 pt reports that he was never really suicidal and never had any intention or plans for self harm. He slept well and reports he feeling better; says depression is still there a little bit... but increases when he thinks about homelessness which triggers a strong reaction. Discussed aftercare and patients says he's not ready yet, that his mind still needs to heal, but he very much wants to attend a CSS/substance abuse program. Pt however refuses to go to [facility], saying he's been there and left early since it's too stringent and confining. Professor Of Languages shared that he can pursue other options but if refuses [facility] and other options do not materialize, patient should understand that plan B will be a penitentiary; pt found this idea upsetting but still refused to attend [facility]. Discussed emotional reactivity and whether to add another medication; did not discuss options yet, but patient said he would consider. 03/06 Patient reports that his mood is better; feels medications are helpful. Reports much anxiety and asks for clonazepam; verse writer reviewed [facility] and pt has not been prescribed clonazepam since August; discussed risks of this med. Professor Of Languages agreed to order just while on inpt unit given acuity, but not to be discharged with to which pt agreed and instead would try low dose seroquel. -pt going to groups 03/07 remains stable, good mood; in good behavioral and impulse control; attending groups and hoping to get accepted to program 03/08 Patient remains at baseline; says his mood is good. Attending groups. Discussed history of emotional reactivity however patient feels that it is under control, that he struggles with being irritable but knows it is just his own problem and that it is been with him for long time. He feels he does not need any medication adjustments to manage this 03/09 Patient said that he is fine; has no complaints and no request. Some irritability but expressed gratitude having phone interview and getting into program. Discussed plan is for him to DC to the program on Wednesday when they have a bed open for him. Reiterated earlier conversation and patient understands that if for some reason he change his mind about the program, the only other option would be for him to go to a penitentiary. 03/10 stable; continue current treatment regimen; plans to discharge Wednesday to treatment program 03/11:Continue current regimen and plans. 03/12: Continue current regimen and plansatient is stable on current medication regimen Plan: cv q15 continue Seroquel 12.5mg prn for anxiety; pt says helping continue Wellbutrin XL 450mg in divided dose continue clonidine continue methadone added clonazepam 0.5mg bid prn for anxiety; pt understands just temporary on unit and will not be discharged on this med Reason for continued inpatient stay Substantial Risk for: med/psych decompensation Time Spent With Patient Time: Total time managing care of this patient today ____ minutes.
[2024-03-12] MEDS: buPROPion HCl XL 150 MG TAB.ER.24H PO (12:43)
[2024-03-12 15:52] VITALS: BP 105/56
[2024-03-12 19:45] VITALS: BP 104/64; PULSE 94; RESP 16; TEMP 37; O2SAT 96
[2024-03-12] MEDS: Melatonin 3 MG TABLET 9 MG PO (19:52)
--- NOTE | 2024-03-12 21:43 | PM.PSYDC ---
DS: Providers Provider Date of Service: 03/13/24 Date of admission: 03/01/24 04:07 Date of discharge: 03/13/24 Primary care physician: Unknown Physician Attending physician on admission: David Carter Consults: 03/01/24 04:40 Consult to Hospitalist Routine Comment: Consulting Provider: [facility] Hospitalists Reason For Exam: OSH admission Attending physician on discharge: David Carter DS: Diagnosis Discharge Diagnosis (1) MDD (major depressive disorder), recurrent severe, without psychosis: Status: Acute (2) Cocaine use disorder: Status: Acute (3) Opioid use disorder: Status: Acute (4) Homeless: Status: Acute DS: Medications Discharge Medications Home Medications: Home Medications ?Medication ?Instructions ?Recorded ?Confirmed aripiprazole 10 mg PO DAILY 03/01/24 03/01/24 bupropion HCl 100 mg PO BID 03/01/24 03/01/24 clonidine 0.2 mg PO BID PRN Anxiety 03/01/24 03/01/24 methadone 10 mg/mL oral 185 mg PO DAILY 03/01/24 03/01/24 concentrate (Methadone Intensol) Mental Status Exam Mental Status Exam Narrative: Pt is alert and oriented; behavior is cooperative and calm; patient is not in distress; dressed in hospital attire with unkempt hair but adequate hygiene; mood is described as ok and affect congruent; eye contact appropriate; Speech is normal rate, volume and prosody and not pressured; no psychomotor agitation/retardation present; thought process is organized and goal directed; Thought content is on tx; otherwise pertinent to relevant topics and without any delusional content, paranoid ideations or grandiosity; denies any SI/HI. There is no evidence of perceptual disturbance. Patients insight and judgment are fair. DS: Summary Hospital Course Hospital Course: HPI: Patient is a 33-year-old male with history of depression, cocaine/fentanyl use disorder, personality disorder, who presents for worsening depression SI with plan to walk in traffic, in the face of homelessness and chronic substance abuse. Patient reports that he was in a psychiatric hospital about a month ago where his mood significantly improved. After discharge, he remained sober for few days but soon relapsed. He has been homeless, sleeping on the street, and boiled in cocaine and fentanyl abuse. Patient reports that this cycle just made his depression worse to the point where he felt hopeless, alone and started having suicidal thoughts to walk out into traffic. These thoughts were fleeting and instead he presented to the ED for help. formulation/clinical reasoning: hx of depression well treated with Bupropion XL 450mg; depression mostly worsens when in active substance abuse. Denies hx of manic type symptoms (with some hesitancy) or psychotic symptoms. Will continue on Bupropion, clonidine, melatonin which he takes regularly. Some consideration as to whether patient has some psychotic symptoms, however pt consistently denied this and refused any other medicaiton management. Hospital course: On admission, patient reports that he was never really suicidal and never had any intention or plans for self harm. He has been depressed off his meds, homeless and embroiled in substance abuse so self-presented. Pt was restarted on home meds. Pt's depression improved and soon all depression abated. He remained without any SI throughout his admission. Pt wanted aftercare program to which he was accepted. Pt remained eating and sleeping well throughout. He wanted to get back on Clonazepam; low dose restarted but it was explained and pt accepted that this was only while on inpt unit and not continued at discharge. Characterlogical contributions demonstrated throughout stay. He mostly kept to himself and engaged in obligatory participation. He frequently spoke in a rude, demanding and dismissive way to staff. This was addressed but while he agreed that he is easily irritated by people and interactions, he disagreed that he misinterprets others intentions or that his interactions are inappropriate. Manager New Product discussed his chronic struggles with this and how it seems to have been interfering with his treatment for quite a while and that perhaps adjusting medications could help; pt disagreed with this assessment and did not want med change. At one point, patient told a nurse that he was going to pretend to be suicidal in order to delay discharge. One incident towards the end of admission occurred when pt was asked to change rooms; he refused and then smeared both beds with food. Pt was confronted by staff with security; he apologized, helped clean up and agreed to remain in good behavioral control going forward. Pt is at baseline and appropriate to return to the community for treatment and attend program. He is discharging to a stable and therapeutic environment to address substance use disorder. He remains vulnerable to relapse and decompensation however this is a chronic problem of which he his well aware. It's writers opinion he would probably benefit from a low dose antipsychotic or mood stabilizer to help with irritability, however he is not open to this at this time. Time spent discussing smoking cessation with patient: 3 to 10 minutes Status at Discharge Functional status at discharge: independent ambulation Overall status at discharge: patient is back to baseline Time Spent with Patient Time attestation: Total time managing care of this patient today __40__ minutes. Time spent: Greater than 30 minutes Specific discharge activities: discussed with team; met with patient; prescriptions, charting Discharge Plan Discharge Anticipated Discharge Date/Time: 03/13/24 11:00 Patient Disposition: [facility] Discharge Diagnosis: MDD, recurrent, moderate, without psychosis, in full remission Referrals: Physician,Unknown J [Primary Care Provider] - 1 Week Discharge Medications: New nicotine (polacrilex) 4 mg gum 4 mg buccal Q2H 30 Days Qty: 100 1RF clonidine HCl 0.2 mg Tablet 0.2 mg PO TID PRN (Reason: anxiety) 30 Days Qty: 90 1RF Protocol: Hold for SBP< HOLD for SBP < : 90 bupropion HCl 150 mg Tablet Extended Release 24 Hr 150 mg PO DAILY@1300 30 Days Qty: 30 1RF bupropion HCl 300 mg Tablet Extended Release 24 Hr 300 mg PO DAILY 30 Days Qty: 30 1RF hydroxyzine HCl 50 mg Tablet 50 mg PO Q6H PRN (Reason: Anxiety) 30 Days Qty: 90 1RF quetiapine 25 mg Tablet 12.5 mg PO TID PRN (Reason: anxiety) 30 Days Qty: 45 1RF Anbesol (benzocaine) Max Str 20 % Gel 1 appl mucous membrane QID PRN (Reason: lower right tooth pain) 30 Days Qty: 9 0RF Protocol: Apply to: Apply to: right lower tooth pain melatonin 10 mg tablet 10 mg PO BEDTIME PRN (Reason: sleep) 30 Days Qty: 30 1RF Continued methadone [Methadone Intensol] 10 mg/mL Concentrate 185 mg PO DAILY Discontinued aripiprazole 10 mg tablet 10 mg PO DAILY bupropion HCl 100 MG tablet 100 mg PO BID Rx Instructions: 0800 AND 1400 clonidine 0.2 MG tablet 0.2 mg PO BID PRN (Reason: Anxiety) Discharge Orders: Discharge Order (Routine); Ordered 03/13/24 Ordered By: David Carter Diet: Regular diet Activity on Discharge: As tolerated Stand Alone Forms: Patient Portal Discharge page Print Language: Citizen Of [place] Care Plan Goals: Maintain mood and safe behaviors Take medications as prescribed Continue to pursue sobriety Practice coping skills Continue with outpatient providers and reach out to them as needed Health Concerns: Mood stability and behaviors Sobriety Plan of Treatment: Follow up with your PCP, psychiatric provider and other outpatient providers regarding above concerns Take medications as prescribed Assessment: Risk assessment at time of discharge:? Patient was interviewed prior to discharge and found to be fully oriented and without any SI or HI. Patient has improved insight and judgment and wants to continue treatment. Patient is not in imminent risk of harm to self or others and has a safety plan that includes presenting to the closest ER or calling 911 if feeling unsafe.? Patient has been observed closely by nursing and unit staff throughout admission; patient has not engaged in any behaviors that suggest dangerousness to self or others and has demonstrated appropriate behaviors and impulse control
[2024-03-13] MEDS: methADONE HCl 20 MG/2 ML ORAL.CONC 185 MG PO (07:54)
[2024-03-13] MEDS: buPROPion HCl XL 300 MG TAB.ER.24H PO (07:56)
[2024-03-13 08:00] VITALS: BP 111/60; PULSE 75; RESP 16; TEMP 36.4; O2SAT 97
[2024-03-13] MEDS: Nicotine Polacrilex 2 MG GUM 4 MG BUCCAL (09:02)
[2024-03-13 09:18] VITALS: BP 111/60
[2024-03-13] MEDS: cloNIDine HCL 0.2 MG TABLET PO (09:18)
[2024-03-13] MEDS: clonazePAM 0.5 MG TABLET PO (09:19)
[2024-03-13] MEDS: Naloxone HCl Nasal TAKE HOME 4 MG SPRAY 8 MG NOSTRILALT (09:19)
== END 2024-03-13 12:27 | disposition home or self-care (01) | DRG 751 ==
PROVIDERS: Psychiatry & Neurology Psychiatry; Admitting Provider Clinical Nurse Specialist Psychiatric/Mental Health, Adult; Visit Provider Psychiatry & Neurology Psychiatry
DX: F33.1 Major depressive disorder, recurrent, moderate (principal); R45.851 Suicidal ideations; F19.90 Other psychoactive substance use, unspecified, uncomplicated; F11.20 Opioid dependence, uncomplicated; F14.10 Cocaine abuse, uncomplicated; F17.210 Nicotine dependence, cigarettes, uncomplicated; Z71.6 Tobacco abuse counseling; Z59.02 Unsheltered homelessness; Z79.899 Other long term (current) drug therapy
CPT/HCPCS: 36415; 80053; 80061; 82607; 82746; 83036; 84439; 84443; 85025

== ENCOUNTER → 2024-03-01 04:07 | Outpatient (BNV) | payer OTHER, SELFPAY | PROVIDERS: Admitting Provider Clinical Nurse Specialist Psychiatric/Mental Health, Adult; Visit Provider Student in an Organized Health Care Education/Training Program | DX: M54.9 Dorsalgia, unspecified (principal) | CPT/HCPCS: 99222 ==

== ENCOUNTER → 2024-03-01 04:07 | Outpatient (BNV) | payer OTHER, SELFPAY | PROVIDERS: Admitting Provider Clinical Nurse Specialist Psychiatric/Mental Health, Adult; Visit Provider Psychiatry & Neurology Psychiatry | DX: F33.2 Major depressive disorder, recurrent severe without psychotic features (principal); F14.10 Cocaine abuse, uncomplicated; F11.90 Opioid use, unspecified, uncomplicated; Z59.00 Homelessness unspecified | CPT/HCPCS: 90792 ==